=== PATIENT | female | born 1950 | race Caucasian/White ===

== ENCOUNTER 2023-02-01 10:00 | Outpatient (CLI) | payer MEDICARE, OTHER, SELFPAY ==
--- NOTE | ~2023-02-01 | US_ITS ---
US retroperitoneal comp 02/01/2023 10:31 Procedure: Realtime transabdominal ultrasound of the kidneys and bladder. Indication: Chronic kidney disease stage IV Comparison: No prior studies for comparison. Findings: Right renal echotexture is normal without hydronephrosis, contour deforming mass or renal c alculi. Right kidney measures 9.1 cm in length. Left kidney is surgically absent. The bladder is not distended for evaluation. Impression: 1: Unremarkable right kidney. Left kidney is surgically absent. Reviewed, dictated and finalized at location B. Impression: 1: Unremarkable right kidney. Left kidney is surgically absent.
[2023-02-01 10:42] LABS: Basophils Absolute Auto 0.05 K/mm3 (0.00-0.10); Eosinophils Absolute Auto 0.47 K/mm3 (0.02-0.50); Eosinophils Percent Auto 9.5 % (1.0-6.0); Hematocrit 35.2 % (35.0-42.0); Hemoglobin 11.9 g/dL (11.7-13.8); Immature Granulocyte Absolute 0.02 K/mm3 (0.00-0.00); Immature Granulocyte Percent A 0.4 % (0.0-0.0); Lymphocytes Absolute Auto 1.37 K/mm3 (1.10-4.50); Lymphocytes Percent Auto 27.6 % (18.0-42.0); Mean Corpuscular HGB Conc 33.8 g/dL (32.0-36.0); Mean Corpuscular Hemoglobin 32.7 pg (27.0-31.0); Mean Corpuscular Volume 96.7 fL (78.0-102.0); Mean Platelet Volume 11.2 fl (9.2-11.8); Monocytes Absolute Auto 0.53 K/mm3 (0.10-0.90); Monocytes Percent Auto 10.7 % (2.0-11.0); Neutrophils Absolute Auto 2.5 K/mm3 (1.7-7.2); Neutrophils Percent Auto 50.8 % (50.0-70.0); Platelet Count Result 187 K/mm3 (150-420); Red Blood Count 3.64 M/mm3 (4.20-5.40); Red Cell Distribution Width 13.2 % (11.6-14.4)
[2023-02-01 10:44] LABS: Bilirubin Urine Negative (Negative); Blood Urine Negative (Negative); Color Urine Orange (Yellow); Glucose Urine UA Negative (Negative); Ketones Urine Trace (Negative); Leukocyte Esterase Ur 2+ (Negative); Nitrate Urine Negative (Negative); Protein Urine Trace (Negative); Specific Grav Ur 1.015 (1.010-1.020); Urobilinogen Urine 0.2 mg/dL (0.2-1.0)
[2023-02-01 10:48] LABS: Add Urine Microscopic? YES; Appearance Urine Cloudy (Clear); Bacteria Urine 1+ /hpf; RBC Urine None seen /hpf (0-2); Squamous Epithelial Cell Urine Few /hpf (Few)
[2023-02-01 10:50] LABS: Creatinine Urine 210.87 mg/dL (40-278); MALB Creatinine Ratio 45.8 mg/g (0-30); Microalbumin Urine Random 96.6 mg/L
[2023-02-01 11:08] LABS: Anion Gap 12 mmol/L (8-16); Blood Urea Nitrogen 22 mg/dL (7-18); Calcium 9.6 mg/dL (8.5-10.1); Carbon Dioxide 24 mmol/L (21-32); Chloride 104 mmol/L (98-108); Estimated Glomerular Filt Rate 35; Glucose 185 mg/dL (70-99); Osmolality Calculated 298 mOsm/kg (285-295); Sodium 140 mmol/L (136-145)
== END 2023-02-01 10:01 | disposition home or self-care (01) ==
LOC: CHSIMG 10:04
PROVIDERS: PCP Family Medicine; Visit Provider Internal Medicine Nephrology
DX: N18.4 Chronic kidney disease, stage 4 (severe) (principal); Z90.5 Acquired absence of kidney
CPT/HCPCS: 36415; 76770; 80048; 81001; 82043; 85025; 86334

== ENCOUNTER 2023-04-21 14:36 | Outpatient (CLI) | payer MEDICARE, OTHER, SELFPAY ==
[2023-04-21 15:06] LABS: Basophils Absolute Auto 0.03 K/mm3 (0.00-0.10); Basophils Percent Auto 0.6 % (0.0-1.0); Eosinophils Absolute Auto 0.17 K/mm3 (0.02-0.50); Eosinophils Percent Auto 3.5 % (1.0-6.0); Hematocrit 33.1 % (35.0-42.0); Hemoglobin 11.2 g/dL (11.7-13.8); Immature Granulocyte Absolute 0.06 K/mm3 (0.00-0.00); Immature Granulocyte Percent A 1.2 % (0.0-0.0); Lymphocytes Absolute Auto 0.69 K/mm3 (1.10-4.50); Lymphocytes Percent Auto 14.1 % (18.0-42.0); Mean Corpuscular HGB Conc 33.8 g/dL (32.0-36.0); Mean Corpuscular Hemoglobin 32.9 pg (27.0-31.0); Mean Corpuscular Volume 97.4 fL (78.0-102.0); Mean Platelet Volume 10.5 fl (9.2-11.8); Monocytes Absolute Auto 0.73 K/mm3 (0.10-0.90); Neutrophils Absolute Auto 3.2 K/mm3 (1.7-7.2); Neutrophils Percent Auto 65.6 % (50.0-70.0); Platelet Count Result 173 K/mm3 (150-420); Red Cell Distribution Width 13.7 % (11.6-14.4); White Blood Count 4.9 K/mm3 (4.8-10.8)
[2023-04-21 15:10] LABS: MALB Creatinine Ratio 19.5 mg/g (0-30); Microalbumin Urine Random 26.5 mg/L
[2023-04-21 15:19] LABS: Albumin Level 3.5 g/dL (3.4-5.0); Anion Gap 7 mmol/L (8-16); Blood Urea Nitrogen 23 mg/dL (7-18); Calcium 9.2 mg/dL (8.5-10.1); Carbon Dioxide 28 mmol/L (21-32); Chloride 104 mmol/L (98-108); Estimated Glomerular Filt Rate 41; Glucose 145 mg/dL (70-99); Osmolality Calculated 294 mOsm/kg (285-295); Phosphorus 3.2 mg/dL (2.6-4.7); Potassium 3.9 mmol/L (3.5-5.1); Sodium 139 mmol/L (136-145)
== END 2023-04-21 14:37 | disposition home or self-care (01) ==
LOC: CHSLAB 14:41
PROVIDERS: PCP Family Medicine
DX: N18.4 Chronic kidney disease, stage 4 (severe) (principal)
CPT/HCPCS: 36415; 80069; 82043; 85025

== ENCOUNTER 2023-08-02 16:04 | Outpatient (CLI) | payer MEDICARE, SELFPAY ==
[2023-08-02 16:23] LABS: Basophils Absolute Auto 0.04 K/mm3 (0.00-0.10); Eosinophils Absolute Auto 0.11 K/mm3 (0.02-0.50); Eosinophils Percent Auto 2.7 % (1.0-6.0); Hematocrit 36.5 % (35.0-42.0); Hemoglobin 12.4 g/dL (11.7-13.8); Immature Granulocyte Absolute 0.03 K/mm3 (0.00-0.00); Immature Granulocyte Percent A 0.7 % (0.0-0.0); Lymphocytes Absolute Auto 1.04 K/mm3 (1.10-4.50); Lymphocytes Percent Auto 25.8 % (18.0-42.0); Mean Corpuscular Hemoglobin 32.1 pg (27.0-31.0); Mean Corpuscular Volume 94.6 fL (78.0-102.0); Mean Platelet Volume 10.9 fl (9.2-11.8); Monocytes Absolute Auto 0.43 K/mm3 (0.10-0.90); Monocytes Percent Auto 10.7 % (2.0-11.0); Neutrophils Absolute Auto 2.4 K/mm3 (1.7-7.2); Neutrophils Percent Auto 59.1 % (50.0-70.0); Platelet Count Result 181 K/mm3 (150-420); Red Blood Count 3.86 M/mm3 (4.20-5.40); Red Cell Distribution Width 13.4 % (11.6-14.4)
[2023-08-02 16:31] LABS: Creatinine Urine 54.14 mg/dL (40-278); MALB Creatinine Ratio 39.8 mg/g (0-30); Microalbumin Urine Random 21.6 mg/L
[2023-08-02 16:57] LABS: Albumin Level 3.7 g/dL (3.4-5.0); Anion Gap 9 mmol/L (8-16); Blood Urea Nitrogen 27 mg/dL (7-18); Carbon Dioxide 27 mmol/L (21-32); Chloride 101 mmol/L (98-108); Estimated Glomerular Filt Rate 37; Glucose 217 mg/dL (70-99); Osmolality Calculated 296 mOsm/kg (285-295); Phosphorus 3.5 mg/dL (2.6-4.7); Potassium 4.3 mmol/L (3.5-5.1); Sodium 137 mmol/L (136-145)
== END 2023-08-02 16:05 | disposition home or self-care (01) ==
LOC: CHSLAB 16:10
PROVIDERS: PCP Family Medicine
DX: N18.4 Chronic kidney disease, stage 4 (severe) (principal)
CPT/HCPCS: 36415; 80069; 82043; 85025

== ENCOUNTER 2023-12-02 14:07 | Outpatient (CLI) | payer MEDICARE, SELFPAY ==
[2023-12-02 14:33] LABS: Hematocrit 36.7 % (35.0-42.0); Hemoglobin 12.6 g/dL (11.7-13.8); Mean Corpuscular HGB Conc 34.3 g/dL (32-36); Mean Corpuscular Hemoglobin 32.3 pg (27.0-31.0); Mean Corpuscular Volume 94.1 fL (78.0-102.0); Platelet Count Result 184 K/mm3 (150-420); Red Cell Distribution Width 13.3 % (11.6-14.4); White Blood Count 5.9 K/mm3 (4.8-10.8)
[2023-12-02 14:41] LABS: Creatinine Urine 134.79 mg/dL (40-278); MALB Creatinine Ratio 37.9 mg/g (0-30); Microalbumin Urine Random 51.2 mg/L
[2023-12-02 15:06] LABS: Albumin Level 3.5 g/dL (3.4-5.0); Anion Gap 10 mmol/L (4-12); Blood Urea Nitrogen 25 mg/dL (7-18); Calcium 9.8 mg/dL (8.5-10.1); Carbon Dioxide 25 mmol/L (21-32); Chloride 101 mmol/L (98-108); Estimated Glomerular Filt Rate 36; Glucose 157 mg/dL (70-99); Osmolality Calculated 289 mOsm/kg (285-295); Phosphorus 3.6 mg/dL (2.6-4.7); Potassium 4.2 mmol/L (3.5-5.1); Sodium 136 mmol/L (136-145)
== END 2023-12-02 14:08 | disposition home or self-care (01) ==
LOC: CHSLAB 14:11
PROVIDERS: PCP Family Medicine
DX: N18.4 Chronic kidney disease, stage 4 (severe) (principal)
CPT/HCPCS: 36415; 80069; 82043; 85027

== ENCOUNTER 2024-02-04 14:45 | Outpatient (CLI) | payer MEDICARE, SELFPAY ==
--- NOTE | ~2024-02-04 | XR_ITS ---
[id number] Ordering provider: Tyree Cr, History: . CERVICAL RADICULAR PAIN,RT ARM . Comparison: None. FINDINGS: VERTEBRAL BODIES: Normal height and alignment. No visible fracture or subluxation. The dens is intact . DISK SPACES: Well maintained. Multilevel uncovertebral joint osteoarthritic changes. PARASPINOUS SOFT TISSUES: Bilateral carotid calcifications. No prevertebral soft tissue swelling. IMPRESSION: No acute osseous abnormality cervical spine. Reviewed, dictated and finalized at location A.
== END 2024-02-04 14:46 | disposition home or self-care (01) ==
PROVIDERS: PCP Family Medicine; Visit Provider Family Medicine
DX: M54.12 Radiculopathy, cervical region (principal)
CPT/HCPCS: 72040

== ENCOUNTER 2024-02-08 12:53 | Outpatient (RCR) | payer MEDICARE, SELFPAY ==
--- NOTE | 2024-02-08 14:16 | OPREHPOC ---
Outpatient Therapy Plan of Care This is a Multidisciplinary Plan of Care that may contain components documented by all disciplines (PT, OT, and ST.) PT Problem 1 PT Problem #1 Knowledge Deficit PT Goal 1 Goal / Goal Update The patient will be independent in a home exercise program. 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 Target Visit 8 PT Problem 3 PT Problem #3 Impaired Functional Mobil PT Goal 1 Goal / Goal Update 1. The patient will demonstrate 30% or less self perceived disability per the Back Index questionnaire. 2. The patient will ambulate 400 feet with 5/10 or less low back pain during the 6 minute walk test to improve community ambulation. Target Visit 8 PT Problem 4 PT Problem #4 Impaired Strength PT Goal 1 Goal / Goal Update The patient will demonstrate 3+/5 lower abdominal and hip extension strength to improve standing and walking tolerance. Target Visit 8
--- NOTE | 2024-02-08 14:17 | PTOPEVAL1 ---
Assessment and note entered by Diamond Kay, PT Evaluation Information Assessment Status Evaluation Diagnosis Lumbar Spinal Stenosis ICD-10 Condition Codes (PT) Pain in low back M54.50 Subjective Information Radha Zavala reports she was diagnosed with spinal stenosis in 2010. She had PT and also had injections and an ablation in the past that did not help her pain. Her most frequent MRI was performed in 2017 and showed DDD and L3-4 neural foraminal stenosis (L > R). She had a pacemaker placed 3 years ago and can not have a MRI now. She has difficulty standing and walking more than a few minutes which leads to inability to shop without a motorized scooter. She has to take breaks after washing a couple dishes. She uses a cane and a rollator walker for ambulation. She denies falls. She notes lower back pain comes and goes. She has pain with standing and walking and no pain with sitting and laying. She notes pain is just in the lower back and does not go into her legs. Reported Pain Level Pain Score 0: Self Report Assessment PT Clinical Summary Radha Zavala presents with chronic lower back pain and has been diagnosed with spinal stenosis. She has difficulty with walking or standing more than 1-2 minutes at a time leading to decreased ability to grocery shop, clean, bathe, and groom. She objectively demonstrates decreased and painful extension and right lateral flexion AROM, decreased core and hip girdle strength, decreased endurance, and decreased functional abilities. She will benefit from skilled PT to address these limitations. Plan of Care Interventions Electrical Stimulation,Hot Pack/Cold Pack,Manual Therapy,Neuro Re-education,Patient/Caregiver Educati,Therapeutic Activities,Therapeutic Exercise PT Services Indicated Yes Treatment Frequency and 2 times a week for 8 visits Duration These treatments will address the objective and functional deficits as defined above. The patient will be advanced safely and appropriately in order for the patient to progress towards his/her prior level of function. Additional exercises will be introduced and as well as a comprehensive home exercise program upon discharge, if needed, ?to ensure carryover of functional gains achieved in the clinic. This treatment plan has been reviewed and agreement upon by the patient.
--- NOTE | 2024-03-07 14:02 | PTOPDC ---
Assessment and note entered by Faith Fried DPT Evaluation Information Assessment Status Re-evaluation Diagnosis Lumbar Spinal Stenosis ICD-10 Condition Codes (PT) Pain in low back M54.50 Subjective Information patient reports that she had not much pain relief. she reports pain is still present when she is standing and walking and has to take frequent breaks when performing house hold tasks. she reports she continues to use a rollator or cane for ambulation outside of the home. she is independent with HEP Reported Pain Level Pain Score 6: Self Report Assessment PT Clinical Summary Radha Zavala has been seen for 8 visits of skilled PT with limited progress towards goals. She continues to have low back pain with standing and walking. She also continues to lack core and hip extension. She does report she is independent with HEP. She will be discharged at this time. Plan of Care PT Services Indicated No
== END 2024-03-07 15:51 | disposition home or self-care (01) ==
LOC: CHSPT 12:53
PROVIDERS: PCP Family Medicine; Visit Provider Family Medicine
DX: M48.061 Spinal stenosis, lumbar region without neurogenic claudication (principal)
CPT/HCPCS: 97110; 97161

== ENCOUNTER 2024-05-01 13:36 | Outpatient (CLI) | payer MEDICARE, SELFPAY ==
[2024-05-01 14:03] LABS: Hematocrit 34.1 % (35.0-42.0); Hemoglobin 11.9 g/dL (11.7-13.8); Mean Corpuscular HGB Conc 34.9 g/dL (32-36); Mean Corpuscular Hemoglobin 32.9 pg (27.0-31.0); Mean Corpuscular Volume 94.2 fL (78.0-102.0); Mean Platelet Volume 10.8 fl (9.2-11.8); Platelet Count Result 210 K/mm3 (150-420); Red Blood Count 3.62 M/mm3 (4.20-5.40); Red Cell Distribution Width 13.8 % (11.6-14.4); White Blood Count 10.4 K/mm3 (4.8-10.8)
[2024-05-01 14:39] LABS: Albumin Level 3.5 g/dL (3.4-5.0); Anion Gap 11 mmol/L (4-12); Blood Urea Nitrogen 35 mg/dL (7-18); Calcium 9.2 mg/dL (8.5-10.1); Carbon Dioxide 23 mmol/L (21-32); Chloride 101 mmol/L (98-108); Estimated Glomerular Filt Rate 41; Glucose 172 mg/dL (70-99); Osmolality Calculated 292 mOsm/kg (285-295); Phosphorus 3.6 mg/dL (2.6-4.7); Potassium 4.3 mmol/L (3.5-5.1); Sodium 135 mmol/L (136-145)
== END 2024-05-01 13:37 | disposition home or self-care (01) ==
LOC: CHSLAB 13:39
PROVIDERS: PCP Family Medicine; Visit Provider Internal Medicine Nephrology
DX: N18.4 Chronic kidney disease, stage 4 (severe) (principal)
CPT/HCPCS: 36415; 80069; 82043; 85027

== ENCOUNTER 2024-05-02 13:21 | Outpatient (CLI) | payer MEDICARE, SELFPAY ==
[2024-05-02 13:45] LABS: Creatinine Urine 149.77 mg/dL (40-278)
[2024-05-02 13:47] LABS: MALB Creatinine Ratio 70.5 mg/g (0-30); Microalbumin Urine Random 105.7 mg/L
== END 2024-05-02 13:22 | disposition home or self-care (01) ==
LOC: CHSLAB 13:23
PROVIDERS: PCP Family Medicine; Visit Provider Internal Medicine Nephrology
DX: N18.4 Chronic kidney disease, stage 4 (severe) (principal)
CPT/HCPCS: 82043

== ENCOUNTER 2024-07-12 14:34 | Outpatient (RCR) | payer MEDICARE, SELFPAY ==
--- NOTE | 2024-07-12 15:16 | PTOPEVAL1 ---
Assessment and note entered by Lawson Burnett Evaluation Information Assessment Status Evaluation ICD-10 Condition Codes (PT) Cervicalgia M54.2,Radiculopathy, cervical M54.13 Onset 07/12/23 Subjective Information Pt. reports that she has had neck and right arm. 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 She states that pain is mostly in the upper right arm. She reports that pain is worsened when looking at her phone or a computer. She reports that she has trouble with sleeping on the right side due to pain. She states that pain is worsened with reaching overhead and reaching across her body. She states that she has no neck pain and all pain is located in the shoulder. She denies any numbness or tingling. She states that her goal is to decrease her right shoulder pain and lift the right arm overhead. Reported Pain Level Pain Score 7: Self Report Assessment PT Clinical Summary Pt. is a 74 year old female who enters the clinic with neck pain and cervical radiculopathy. She present with indication of right shoulder impingement syndrome, as well as indication of degenerative changes at the right shoulder. Continued skilled PT is indicated in order to improve these areas to allow the pt. to be able improve right u.e. use with overhead activities and IADL performance. Plan of Care Interventions Electrical Stimulation,Hot Pack/Cold Pack,Manual Therapy,Mechanical Traction,Neuro Re-education, Patient/Caregiver Education,Therapeutic Activities ,Therapeutic Exercise PT Services Indicated Yes Treatment Frequency and 2x/week x 10 visits Duration These treatments will address the objective and functional deficits as defined above. The patient will be advanced safely and appropriately in order for the patient to progress towards his/her prior level of function. Additional exercises will be introduced and as well as a comprehensive home exercise program upon discharge, if needed, to ensure carryover of functional gains achieved in the clinic. This treatment plan has been reviewed and agreement upon by the patient.
--- NOTE | 2024-07-12 15:23 | OPREHPOC ---
Outpatient Therapy Plan of Care This is a Multidisciplinary Plan of Care that may contain components documented by all disciplines (PT, OT, and ST.) PT Problem 1 PT Problem #1 Knowledge Deficit PT Goal 1 Goal / Goal Update Pt. will be independent with a HEP focusing on c- spine mobility and postural awareness Target Visit 2 PT Problem 2 PT Problem #2 Impaired Range of Motion PT Goal 1 Goal / Goal Update Pt. will demonstrate 140 degrees active right shoulder flexion against gravity. Pt. will be able to reach to the thoracolumbar junction with the right u.e. for ease of dressing Target Visit 10 PT Problem 3 PT Problem #3 Impaired Strength PT Goal 1 Goal / Goal Update Pt. will present with 4/5 right shoulder flexion, ER and abduction strength Pt. will be able to lift 3-5# overhead with the right u.e. Target Visit 10 PT Problem 4 PT Problem #4 Impaired Functional Mobility PT Goal 1 Goal / Goal Update Pt. will report being able to sleep on the right side without pain disturbance.
== END 2024-07-19 20:00 | disposition home or self-care (01) ==
LOC: CHSPT 14:34
DX: M54.12 Radiculopathy, cervical region (principal)
CPT/HCPCS: 97110; 97140; 97161

== ENCOUNTER 2024-12-12 14:28 | Outpatient (RCR) | payer MEDICARE, SELFPAY ==
--- NOTE | 2024-12-12 16:51 | PTOPEVAL1 ---
Assessment and note entered by Faith Fried DPT Evaluation Information Assessment Status Evaluation Diagnosis R shoulder pain, back pain ICD-10 Condition Codes (PT) Radiculopathy, lumbar region M54.16,Pain in right shoulder M25.511 Other ICD-10 Condition Codes ( M75.80, M75.81 PT) Onset 11/27/24 Subjective Information Patient reports that she has had chronic back pain since 2010. She reports she has had injections and PT and has not had much relief. She reports she gets pain with standing for prolonged periods. She reports she is now using a rollator. She reports she has also had R shoulder pain for the last year. She reports she attended PT earlier this year but then ended up hospitalized but prior to hospitalization she felt she was getting some relief. She reports pain is worse with reaching out in front of her, sleeping, and completing house hold tasks. She reports she uses heat and pain patch for relief. She reports no following up at this time. Reported Pain Level Pain Score 2,0: Self Report Assessment PT Clinical Summary Mrs. Zavala is a 74 year old female who presents to PT with low back and R shoulder pain. She demonstrates decreased R shoulder active ROM, decreased R shoulder strength, decreased lumbar ROM and impaired gait limiting her ability to reach out in front of her, sleep, and complete house hold tasks She would benefit from skilled PT to address impairments and return to PLOF. Plan of Care Interventions Electrical Stimulation,Gait Training,Hot Pack/Cold Pack,Manual Therapy,Mechanical Traction,Neuro Re- education,Patient/Caregiver Education,Therapeutic Activities,Therapeutic Exercise PT Services Indicated Yes Treatment Frequency and 2x weekly for 10 visits Duration These treatments will address the objective and functional deficits as defined above. The patient will be advanced safely and appropriately in order for the patient to progress towards his/her prior level of function. Additional exercises will be introduced and as well as a comprehensive home exercise program upon discharge, if needed, ?to ensure carryover of functional gains achieved in the clinic. This treatment plan has been reviewed and agreement upon by the patient.
--- NOTE | 2025-01-11 14:48 | OPREHPOC ---
Outpatient Therapy Plan of Care This is a Multidisciplinary Plan of Care that may contain components documented by all disciplines (PT, OT, and ST.) PT Problem 1 PT Problem #1 Knowledge Deficit PT Goal 1 Goal / Goal Update patient to demonstrate independence with HEP Target Visit 5 Progress Met PT Problem 2 PT Problem #2 Pain PT Goal 1 Goal / Goal Update 1. patient to report highest R shoulder pain at 2/ 10 2. patient to report ability to reach to floor without increase in low back pain Target Visit 10 Progress Not Met PT Problem 3 PT Problem #3 Impaired Range of Motion PT Goal 1 Goal / Goal Update patient to demonstrate active R shoulder flexion to 160 deg to return to reaching into cabinet at PLOF Target Visit 10 Progress Not Met PT Problem 4 PT Problem #4 Impaired Functional Mobility PT Goal 1 Goal / Goal Update 1. Patient to improve both Quick Dash and Back index by 20% 2. Patient to report ability to stand for >30 minutes to complete house hold tasks 3. Patient to report ability to dress with no limitations due to R shoulder pain Target Visit 10 Progress Not Met
--- NOTE | 2025-01-11 14:48 | PTOPPROG ---
Assessment and note entered by Diamond Kay, PT Evaluation Information Assessment Status Progress Diagnosis R shoulder pain, back pain ICD-10 Condition Codes (PT) Radiculopathy, lumbar region M54.16,Pain in right shoulder M25.511 Other ICD-10 Condition Codes ( M75.80, M75.81 PT) Onset 11/27/24 Subjective Information Pt reports that her right shoulder is about the same overall. She notes that she can sleep on her right side now without pain but she still has difficulty reaching overhead. She continues to have low back pain as well that limits her ability to stand. She reports she has been diagnosed with spinal stenosis and her pain will most likely always be there. Assessment PT Clinical Summary Mrs. Zavala is a 74 year old female who has completed 10 skilled PT visits for low back and R shoulder pain. She is reporting no change in low back pain and minimal improvement in right shoulder pain. She is able to sleep without right shoulder pain now but she still has difficulty reaching overhead and behind her back. She demonstrates no significant change in right shoulder strength and ROM is about the same as well with the exception of functional ER behind the head has improved. She has not met PT goals at this time. She was recommended to follow up with her physician and we will put PT on hold until then. Plan of Care Interventions Manual Therapy,Patient/Caregiver Education, Therapeutic Activities,Therapeutic Exercise PT Services Indicated No Treatment Frequency and PT on hold until MD follow up Duration These treatments will address the objective and functional deficits as defined above. The patient will be advanced safely and appropriately in order for the patient to progress towards his/her prior level of function. Additional exercises will be introduced and as well as a comprehensive home exercise program upon discharge, if needed, ?to ensure carryover of functional gains achieved in the clinic. This treatment plan has been reviewed and agreement upon by the patient.
== END 2025-03-12 23:59 | disposition home or self-care (01) ==
LOC: CHSPT 14:28
DX: M54.16 Radiculopathy, lumbar region (principal); M75.81 Other shoulder lesions, right shoulder
CPT/HCPCS: 97110; 97140; 97161; 97530

== ENCOUNTER 2025-01-12 15:30 | Outpatient (CLI) | payer MEDICARE, SELFPAY ==
--- OUTSIDE RECORDS SUMMARY | 2024-08-24 08:10 | XMS_ITS ---
Author Organization [facility] Address [address] [facility] [address] [place], [place] [id number] Care Team Providers Care Coordinate Measuring Equipment Operator Name Role Phone ASHWIN COSTA Unavailable [phone] Tyree Cr Unavailable Unavailable DREW CRUZ Unavailable [phone] REASON FOR VISIT *General care Encounters Encounter Location Date Provider Diagnosis [address] [id number] 08/24/2024 DREW CRUZ Plan Of Treatment Next Appt Details Provider Name:ASHWIN COSTA, 02:20:00 PM, [address], [address], [id number], Progress Notes * LOVE SCHUSTER FDOB: [birth year] (74 yo F)Acc No.[id number]:08/24/2024 Patient: Mario CAO LOVE Sakshi Provider: Ita CRUZ :1950 A ge:74 Y S ex:Female Date:08/24/2024 Address:[address] [place], [place] [id number] Subjective: * Chief Complaints: * 1 . *General care. * Medical History: Objective: * Vitals: Assessment: Plan: * Treatment: * Billing Information: * Visit Code: * Procedure Codes: * Electronic signature of TAMRA CRUZ DPM on 01/12/2025 at 03:36 PM CDT Sign off status: Pending * Provider: Ita CRUZ Date: 0 08/24/2024 Generated for [place] peterson/Celia/Adalberto on: 0 01/12/2025 03:36 PM CDT
--- OUTSIDE RECORDS SUMMARY | 2024-12-11 09:00 | XMS_ITS ---
Author Organization [facility] Address [address] [place], [place] [id number] Care Team Providers Care Free Lance Model Name Role Phone ASHWIN COSTA Unavailable [phone] Tyree Cr Unavailable Unavailable Allergies Allergen (clinical drug ingredient) Drug/Non Drug Allergy documented on EMR Reaction Allergy Type Onset Date Status cefazolin Ancef (uncoded) Unknown Allergy 03/31/2013 act drew Product containing sulfonamide (product) (uncoded) Unknown Allergy 03/03/2013 active REASON FOR VISIT The patient has bruising to the right 2nd and 3rd toes. She does not recall any accident or injury.She states that it doens't hurt. She is not sure how long it has been there. It could have been there for 2 days or 2 months per the patient., Patient presents for at-risk foot care . The patient haspainful toenails that cause difficulty with ambulation and shoegear. The onset is gradual Medications Medication SIG (Take, Route, Frequency, Duration) Notes Start Date End Date Status amlodipine 10 MG Oral Tablet ORAL amlodipine 10 MG Oral TabletOriginal Medicationamlodipine 10 MG Oral Tablet *Reorder from [employer] for eRx and Interaction Alerts* 5 Active Lactobacillus acidophilus [id number] UNT Oral Capsule ORAL Lactobacillus acidophilus [id number] UNT Oral CapsuleOriginal MedicationLactobacillus acidophilus [id number] UNT Oral Capsule *Reorder from [employer] for eRx and Interaction Alerts* 5 Active levothyroxine sodium 0.112 MG Oral Tablet ORAL levothyroxine sodium 0.112 MG Oral TabletOriginal Medicationlevothyroxine sodium 0.112 MG Oral Tablet *Reorder from [facility] for eRx and Interaction Alerts* 3 Active omeprazole 10 MG Delayed Release Oral Capsule ORAL omeprazole 10 MG Delayed Release Oral CapsuleOriginal Medicationomeprazole 10 MG Delayed Release Oral Capsule *Reorder from [facility] for eRx and Interaction Alerts* 3 Active trazodone hydrochloride 100 MG Oral Tablet ORAL trazodone hydrochloride 100 MG Oral TabletOriginal Medicationtrazodone hydrochloride 100 MG Oral Tablet *Reorder from [facility] for eRx and Interaction Alerts* 3 Active acetaminophen 325 MG Oral Tablet [Tylenol] ORAL acetaminophen 325 MG Oral Tablet [Tylenol]Original Medicationacetaminophen 325 MG Oral Tablet [Tylenol] *Reorder from [facility] for eRx and Interaction Alerts* 3 Active Losartan Potassium 100 MG Oral Tablet ORAL losartan potassium 100 MG Oral TabletOriginal Medicationlosartan potassium 100 MG Oral Tablet *Reorder from [facility] for eRx and Interaction Alerts* 3 Active Flucytosine 500 MG Oral Capsule ORAL flucytosine 500 MG Oral CapsuleOriginal Medicationflucytosine 500 MG Oral Capsule *Reorder from [facility] for eRx and Interaction Alerts* 3 Active Pravastatin Sodium 10 MG Oral Tablet ORAL pravastatin sodium 10 MG Oral TabletOriginal Medicationpravastatin sodium 10 MG Oral Tablet *Reorder from [facility] for eRx and Interaction Alerts* 3 Active Meloxicam 15 MG Oral Tablet ORAL meloxicam 15 MG Oral TabletOriginal Medicationmeloxicam 15 MG Oral Tablet *Reorder from [facility] for eRx and Interaction Alerts* 5 Active Metoprolol Tartrate 100 MG Oral Tablet ORAL metoprolol tartrate 100 MG Oral TabletOriginal Medicationmetoprolol tartrate 100 MG Oral Tablet *Reorder from [facility] for eRx and Interaction Alerts* 5 Active Vital Signs Height 64.00 in 12/11/2024 Weight 230 lbs 12/11/2024 BMI 39.48 kg/m2 12/11/2024 Height-cm 162.56 cm 12/11/2024 Weight-kg 104.33 kg 12/11/2024 Encounters Encounter Location Date Provider Diagnosis [facility] [address] [place], [place] [id number] 12/11/2024 ASHWIN COSTA Tinea unguium B35.1 ; Contusion of right foot, initial encounter S90.31XA ; Pain in right toe(s) M79.674 ; Pain in left toe(s) M79.675 and Atherosclerosis of shoalwater arteries of extremities with intermittent claudication, bilateral legs I70.213 Assessments Encounter Date Diagnosis (ICD Code) Assessment Notes Treatment Notes Treatment Clinical Notes Section Notes 12/11/2024 Tinea unguium (ICD-10 - B35.1) FUNGAL TOENAILS: Discussed various treatment options for fungal toenails including debridement, topical antifungals, oral antifungals, toenail avulsion, or toenail matrixectomy. NAIL DEBRIDEMENT: Nails 1-5 Bilateral were debrided extensively with nail nippers and emery board, reducing length and girth to pink healthy tissue with any subungual debris and necrotic tissue removed 12/11/2024 Contusion of right foot, initial encounter (ICD-10 - S90.31XA) I instructed the patient to monitor the bruising. If it persists after 2-3 weeks with no improvement, she will contact the office 12/11/2024 Pain in right toe(s) (ICD-10 - M79.674) 12/11/2024 Pain in left toe(s) (ICD-10 - M79.675) 12/11/2024 Atherosclerosis of shoalwater arteries of extremities with intermittent claudication, bilateral legs (ICD-10 - I70.213) Plan Of Treatment Treatment Notes Assessment Notes Tinea unguium FUNGAL TOENAILS: Discussed various treatment options for fungal toenails including debridement, topical antifungals, oral antifungals, toenail avulsion, or toenail matrixectomy. NAIL DEBRIDEMENT: Nails 1-5 Bilateral were debrided extensively with nail nippers and emery board, reducing length and girth to pink healthy tissue with any subungual debris and necrotic tissue removed Contusion of right foot, initial encount er I instructed the patient to monitor the bruising. If it persists after 2-3 weeks with no improvement, she will contact the office Next Appt Details Follow Up: 10-12 Weeks, Reas on: At Risk Foot care, sooner if problems arise Provider Name:ASHWIN CHERYNEHAL, 02:20:00 PM, [address], [facility], [place], [place], [id number], Progress Notes * LOVE SCHUSTER FDOB: [birth year] (74 yo F)Acc No.[id number]:12/11/2024 Patient: LOVE GRAHAM Provider: Chavo Costa DPM :1950 A ge:74 Y S ex:Female Date:12/11/2024 Address:[address] [place], [place] [id number] Subjective: * Chief Complaints: * 1 . The patient has bruising to the right 2nd and 3rd toes. She does not recall any accident or injury. She states that it doens't hurt. She is not sure how long it has been there. It could have been there for 2 days or 2 months per the patient.. 2. Patient presents for at-risk foot care . The patient has painful toenails that cause difficulty with ambulation and shoegear. The onset is gradual. * HPI: H PI: General care P atient presents to the office for at risk foot care. Patient states that their nails are thickened, elongated and painful. Patient states that it is aggravated by shoe gear. Onset is gradual. Patient denies being diabetic., Patient denies taking prescription blood thinners but does take a daily aspirin., Date last seen by Dr. Cr was 09/2024., Initials mca. sample. * ROS: G eneral / Constitutional: Patient denies c hills, fever, weight loss. ? M usculoskeletal: Patient denies b roken foot bone, weakness. ? P eripheral Vascular: Patient denies p ain / cramping in legs after exertion, ulceration of feet. S kin: Patient complains of f ungal nails, nail changes. ? N eurologic: Patient denies b alance difficulty, confusion, difficulty speaking, dizziness. * Medical History: * Family History: F ather: PRN - Father: :: Heart Disease < 55 yrs,,known absent . M other: PRN - Mother: :: Diabetes,,known absent , :: Congenital heart disease,,known absent . B rother: SIB - Brother: :: Arthritis,,known absent , :: Cancer,,known absent , :: Heart Disease < 55 yrs,,known absent , , :: Diabetes,,known absent , :: Hypertension,,known absent . S ister: SIB - Sister: :: Arthritis,,known absent , :: Cancer,,known absent , :: Diabetes,,known absent , :: Hypertension,,known absent . * Social History: M igrated Social History: M igrated Social History: Alcohol intake : , Smoking Status : Never used tobacco , History of tobacco use :. * Medications: T aking Metoprolol Tartrate 100 MG Oral Tablet ORAL , Notes to Pharmacist: metoprolol tartrate 100 MG Oral TabletOriginal Medicationmetoprolol tartrate 100 MG Oral Tablet *Reorder from [facility] for eRx and Interaction Alerts*, Taking Flucytosine 500 MG Oral Capsule ORAL , Notes to Pharmacist: flucytosine 500 MG Oral CapsuleOriginal Medicationflucytosine 500 MG Oral Capsule *Reorder from [facility] for eRx and Interaction Alerts*, Taking Pravastatin Sodium 10 MG Oral Tablet ORAL , Notes to Pharmacist: pravastatin sodium 10 MG Oral TabletOriginal Medicationpravastatin sodium 10 MG Oral Tablet *Reorder from [facility] for eRx and Interaction Alerts*, Taking Meloxicam 15 MG Oral Tablet ORAL , Notes to Pharmacist: meloxicam 15 MG Oral TabletOriginal Medicationmeloxicam 15 MG Oral Tablet *Reorder from [facility] for eRx and Interaction Alerts*, Taking Losartan Potassium 100 MG Oral Tablet ORAL , Notes to Pharmacist: losartan potassium 100 MG Oral TabletOriginal Medicationlosartan potassium 100 MG Oral Tablet *Reorder from [facility] for eRx and Interaction Alerts*, Taking acetaminophen 325 MG Oral Tablet [Tylenol] ORAL , Notes to Pharmacist: acetaminophen 325 MG Oral Tablet [Tylenol]Original Medicationacetaminophen 325 MG Oral Tablet [Tylenol] *Reorder from [facility] for eRx and Interaction Alerts*, Taking amlodipine 10 MG Oral Tablet ORAL , Notes to Pharmacist: amlodipine 10 MG Oral TabletOriginal Medicationamlodipine 10 MG Oral Tablet *Reorder from [facility] for eRx and Interaction Alerts*, Taking Lactobacillus acidophilus [id number] UNT Oral Capsule ORAL , Notes to Pharmacist: Lactobacillus acidophilus [id number] UNT Oral CapsuleOriginal MedicationLactobacillus acidophilus [id number] UNT Oral Capsule *Reorder from [facility] for eRx and Interaction Alerts*, Taking levothyroxine sodium 0.112 MG Oral Tablet ORAL , Notes to Pharmacist: levothyroxine sodium 0.112 MG Oral TabletOriginal Medicationlevothyroxine sodium 0.112 MG Oral Tablet *Reorder from [facility] for eRx and Interaction Alerts*, Taking omeprazole 10 MG Delayed Release Oral Capsule ORAL , Notes to Pharmacist: omeprazole 10 MG Delayed Release Oral CapsuleOriginal Medicationomeprazole 10 MG Delayed Release Oral Capsule *Reorder from [facility] for eRx and Interaction Alerts*, Taking trazodone hydrochloride 100 MG Oral Tablet ORAL , Notes to Pharmacist: trazodone hydrochloride 100 MG Oral TabletOriginal Medicationtrazodone hydrochloride 100 MG Oral Tablet *Reorder from [facility] for eRx and Interaction Alerts*, Medication List reviewed and reconciled with the patient * Allergies: A ncef: Allergy - Onset Date 03/31/2013, Product containing sulfonamide (product): Allergy - Onset Date 03/03/2013. Objective: * Vitals: W t:230lbs, Wt-k.33 kg, Ht: 64.00 in, Ht-cm: 162.56 cm, BMI:39.48Index, Body Surface Area: 2.17. * Examination: C onstitutional: Constitutional T he patient is awake, alert, well developed, well groomed and well nourished. D ermatologic: Skin findings: S kin is thin, atrophic and lacking pedal hair. There is ecchymosis to the right 2nd and 3rd digits. No blisters. No lacerations. No calor. Nail pathology: N ails 1, 2, 3, 4, and 5 bilateral are elongated, thick, discolored, and dystrophic with subungual debris. They are painful to palpation. ? V ascular: Dorsalis pedis pulse: 1 /4 b ilateral. Posterior tibial pulse: 0 /4 b ilateral. Capillary refill: g reater than 3 seconds. Edema: N o edema, bilateral. N eurologic: Gross sensation G loli sensation is intact to light touch.? M usculoskeletal: Muscle Strength M uscle strength is 5/5 in regards to dorsiflexion, plantarflexion, inversion, and eversion in bilateral lower extremities. ? R adiographs: Right Foot N o evidence of fracture, dislocation, or other osseous lesions. 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 Xray Order T est Requested: 3 Views Weightbearing (AP, LAT, Oblique) Foot, right. Assessment: * Assessment: 1. T inea unguium - B35.1 (Primary) 2 . C ontusion of right foot, initial encounter - S90.31XA 3 . P ain in right toe(s) - M79.674 4 . P ain in left toe(s) - M79.675 5 . A therosclerosis of shoalwater arteries of extremities with intermittent claudication, bilateral legs - I70.213 Plan: * Treatment: 2. C ontusion of right foot, initial encounter Notes: I instructed the patient to monitor the bruising. If it persists after 2-3 weeks with no improvement, she will contact the office * Immunizations: Immunization record has been reviewed and updated. * Preventive Medicine: Screenings: F all risk screening F all Risk Assessment: T wo or more falls with injury in the past year, P sruthi of Care: D ocumented, T ype of fall plan of care: Balance, strength and gait training or instruction provided, H ave you had two or more falls in the past year? Y es, H ave you had any falls with injury in the past year? Y es. * Follow Up: 1 0-12 Weeks (Reason: At Risk Foot care, sooner if problems arise) * Billing Information: * Visit Code: 70854 Office Visit, Est Pt., Level 3. * Procedure Codes: * Electronic signature of ASHWIN COSTA DPM on 01/12/2025 at 03:36 PM CDT Sign off status: Pending * Provider: Chavo Costa DPM Date: 0 12/11/2024 Generated for [place] peterson/Celia/Bhavnaitting on: 0 01/12/2025 03:36 PM CDT History and Physical Notes * HPI (History of Present Illness) Category Sub-Category Detail Notes Category Not es HPI General care Patient presents to the office for at risk foot care. Patient states that their nails are thickened, elongated and painful. Patient states that it is aggravated by shoe gear. Onset is gradual. Patient denies being diabetic., Patient denies taking prescription blood thinners but does take a daily aspirin., Date last seen by Dr. Cr was 09/2024., Initials mca sample Examination Category Sub-Category Detail Notes Category Not es Dermatologic Skin findings: Skin is thin, at rophic and lacking pedal hair. There is ecchymosis to the right 2nd and 3rd digits. No blisters. No lacerations. No calor Nail pathology: Nails 1, 2, 3, 4, an d 5 bilateral are elongated, thick, discolored, and dystrophic with subungual debris. They are painful to palpation Neurologic Gross sensation Gross sensation is intact to light touch Vascular Dorsalis pedis pulse: 1/4 bilateral Edema: No edema, bilateral Capillary refill: greater than 3 secon ds Posterior tibial pulse: 0/4 bilateral Musculoskeletal Muscle Strength Muscle strength is 5/5 in regards to dorsiflexion, plantarflexion, inversion, and eversion in bilateral lower extremities Constitutional Constitutional The patient is a wake, alert, well developed, well groomed and well nourished Radiographs Right Foot No evidence of f racture, dislocation, or other osseous lesions. 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
--- OUTSIDE RECORDS SUMMARY | 2025-01-12 15:37 | XMS_ITS | Clinical Summary ---
Author Organization [facility] Address [address] [place] [address] Care Team Providers Care Car Pilot Name Role Phone Armando Antonio MD Unavailable [phone] Source Comments [facility],non-owned Affiliates and Associated Physician Practices is amultiple site organization consisting of ambulatory clinics and hospital sitesin [place], [place], [place] and [place]. This disclosure is being madepursuant to the Care Everywhere program and may not contain all information available regarding this patient. Last updated 18.[facility] Allergies Active Allergy Reactions Criticality Noted Date Comments Sulfa Drugs 02/02/2012 Medications * Be aware that medications may not be up to date on this document. Alwaysverify current medications with the patient. omeprazole (PRILOSEC OTC) 20 MG tablet Take 20 mg by mouth daily before breakfast. Active Thyroid, Pork, 30 MG CAPS Take by mouth. Active FLUoxetine (PROZAC) 20 MG capsule Take 20 mg by mouth once daily. Active losartan (COZAAR) 100 MG tablet Take 100 mg by mouth once daily. Active Multiple Vitamins-Mineral s (PROSIGHT) tablet Take 1 Tab by mouth once daily. Active pravastatin (PRAVACHOL) 40 MG tablet Take 40 mg by mouth at bedtime. Active traZODone (DESYREL) 50 MG tablet Take 50 mg by mouth at bedtime. Active SULINDAC PO Take by mouth. Active meloxicam (MOBIC) 15 MG tablet Take 15 mg by mouth once daily. Active Probiotic Product (PROBIOTIC DAILY PO) Take by mouth. Active amLODIPine (NORVASC) 5 MG tablet Take 5 mg by mouth once daily. Active metoprolol succinate XL 24hr (TOPROL XL) 25 MG tablet Take 25 mg by mouth once daily. 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 Gender Identity Not on file Sexual Orientation Not on file Plan of Treatment Health Maintenance Due Date Last Done Comments BONE DENSITY TESTING 1950 COLOGUARD (AGES 45-75) - COL ON CA SCREENING 1950 COLON MONITORING 1950 COLONOSCOPY - COLON CA SCREENING 1950 CT COLONOGRAPHY - COLON CA SCREENING 1950 Colorectal Cancer Screening 1950 FIT - COLON CA SCREENING 1950 FLEX SIG - COLON CA SCREENING 1950 MAMMOGRAM 1950 MEDICARE AWV 12 MONTHS 1950 HEPATITIS C SCREENING 04/14/1969 DTAP/TDAP/TD VACCINES (1 - Tdap) 1970 PNEUMOCOCCAL VACCINE 50+ (1 of 1 - PCV) 2001 ZOSTER VACCINE (1 of 2) 2001 COVID-19 VACCINE (1 - 2023-2 5 season) 2024 DEPRESSION SCREENING 05/24/2024 INFLUENZA VACCINE (#1) 2025 Respiratory Syncytial Virus (RSV) Vaccine Pt: or over 60 yrs (1 - 1-dose 75+ series) 2026 HEPATITIS B VACCINE Aged Out No longe r eligible based on patient's age to complete this topic HIB VACCINE Aged Out No longer eligi ble based on patient's age to complete this topic HPV VACCINE Aged Out No longer eligi ble based on patient's age to complete this topic MENINGOCOCCAL (Group B) VACC INE SHARED DECISION-MAKING Aged Out No longer eligibl e based on patient's age to complete this topic MENINGOCOCCAL GROUPS A/C/Y/W VACCINE Aged Out No longer eligible b ased on patient's age to complete this topic Insurance [facility] Address: [address] [facility] [address] [place] [address] MEDICARE [employer] Care Teams Car Pilot Relationship Specialty Start Date End Date Armando Antonio MD Orthopedic Surgery 02/02/12
--- OUTSIDE RECORDS SUMMARY | 2025-01-12 15:37 | XMS_ITS | Encounter Summary ---
Author Organization [facility] Address [address] [place] [address] Care Team Providers Care Front Man Name Role Phone Armando Antonio MD Unavailable [phone] Encounter Details Date Type Department Care Team (Late st Contact Info) Description 08/21/2022 Lab Requisition [facility] Care DermPath Lab [address] [place] [id number] Cristian Mercado MD [address] [place] [address] Social History Tobacco Use Types Packs/Day Years Used Date Smoking Tobacco: Unknown Alcohol Use Standard Drinks/Week Comments Not Asked 0 (1 standard drink = 0.6 oz pur e alcohol) Comments Unknown Sex and Gender Information Value Date Recorded Sex Assigned at Not on file Legal Sex Female 6:06 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 Gender Identity Not on file Sexual Orientation Not on file documented as of this encounter Plan of Treatment Not on file documented as of this encounter Procedures Procedure Name Priority Date/Time Associated Diagnosis Comments DERMATOPATHOLOGY Routine 08/19/2022 3:33 AM CDT documented in this encounter Results * DERMATOPATHOLOGY (08/19/2022 3:33 AM CDT) Case Report Dermatopathology Report Case: [id number] Authorizing Provider: Cristian Mercado MD Collected: 08/19/2022 03:33 AM Ordering Location: [facility] Care DermPath Lab Received: 08/21/2022 07:19 AM Pathologist: Henny Martines MD Specimens: A) - Skin, left frontal scalp B) - Skin, parietal scalp C) - Skin, post parietal scalp 4:23 PM T DERMATOPATHOLOGY LABORATORY Final Diagnosis Specimen A. 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 SKIN, parietal scalp: FOLLICULITIS, SUPPURATIVE (L73.8) (see microscopic description) Specimen C. SKIN, post parietal scalp: PRURIGO NODULARIS, ERODED, AND IMPETIGINIZED (L28.1) 4:23 PM T DERMATOPATHOLOGY LABORATORY at 1623 CDT Clinical History A-C: R/O SCC BCC LSC 4:23 PM T DERMATOPATHOLOGY LABORATORY Gross Description Specimen A: Received is one formalin filled container labeled with the patient's name and designated left frontal scalp. The specimen consists of a shave biopsy measuring 8x7x1 mm. Jar 0. Specimen B: Received is one formalin filled container labeled with the patient's name and designated parietal scalp. The specimen consists of a shave biopsy measuring 6x5x1 mm. Jar 0. Specimen C: Received is one formalin filled container labeled with the patient's name and designated post parietal scalp. The specimen consists of two shaved biopsies measuring 8x7x2 mm and 6x4x1 mm. Jar 0. 4:23 PM T DERMATOPATHOLOGY LABORATORY Microscopic Description Specimen A. SKIN, left frontal scalp: There is a dome-shaped portion of skin with psoriasiform epidermal hyperplasia, compact hyperkeratosis, and fibrosis of the papillary dermis associated with a superficial perivascular lymphohistiocytic infiltrate. A focal erosion is present. Specimen B. SKIN, parietal scalp: Sections show rupture of the follicular infundibulum, with numerous neutrophils. GMS stain is negative for fungus. Gram stain is negative for bacteria. Specimen C. SKIN, post parietal scalp: There is a dome-shaped portion of skin with psoriasiform epidermal hyperplasia, compact hyperkeratosis, and fibrosis of the papillary dermis associated with a superficial perivascular lymphohistiocytic infiltrate. A focal erosion is present. Bacteria are seen within the overlying inflamed serum scale crust. 4:23 PM CDT DERMATOPATHOLOGY LABORATORY Disclaimer An external and internal positive and negative controls are appropriate for the histochemical, immunohistochemical and immunofluorescence stain(s) in this case (if any), except where stated explicitly. The performance characteristics of the stain(s) cited in this report were developed and its performance characteristic determined by the Dermatopathology Laboratory at [facility], directed by Dr. Richar Little. These tests need not be, and therefore are not, approved by the [place] Food and Drug Administration. The tests are used for clinical purposes. Billing Codes Specimen Charges Stain Charges 85277 10089 96673 1 1 1 67716 22148 1 1 3 4:23 PM CDT DERMATOPATHOLOGY LABORATORY Embedded Images 3 4:23 PM CDT DERMATOPATHOLOGY LABORATORY Pathology/Cytology TISSUE SPECIMEN FROM SKIN / Unknown 08/19/2022 3:33 AM CDT 08/21/2022 7:19 AM CDT Miscellaneous samples (specimen) TISSUE SPECIMEN FROM SKIN / Unknown 08/19/2022 3:33 AM CDT 08/21/2022 7:19 AM CDT Miscellaneous samples (specimen) TISSUE SPECIMEN FROM SKIN / Unknown 08/19/2022 3:33 AM CDT 08/21/2022 7:19 AM CDT Cristian Mercado MD LAB - PATHOLOGY/CYTOLOGY ORD ERABLES Final Result DERMATOPATHOLOGY LABORATORY [facility] Department of Dermatology [facility] Medicine [address] [place] [address], [address] [phone] documented in this encounter Visit Diagnoses Not on filedocumented in this encounter Care Teams Front Man Relationship Specialty Start Date End Date Armando Antonio MD Orthopedic Surgery 02/02/12 documented as of this encounter
[2025-01-12 15:47] LABS: Hematocrit 32.1 % (35.0-42.0); Hemoglobin 10.9 g/dL (11.7-13.8); Mean Corpuscular HGB Conc 34.0 g/dL (32-36); Mean Corpuscular Hemoglobin 32.1 pg (27.0-31.0); Mean Corpuscular Volume 94.4 fL (78.0-102.0); Platelet Count Result 255 K/mm3 (150-420); Red Blood Count 3.40 M/mm3 (4.20-5.40); White Blood Count 9.2 K/mm3 (4.8-10.8)
[2025-01-12 16:40] LABS: Albumin Level 4.1 g/dL (3.5-5.1); Anion Gap 9 mmol/L (4-12); Blood Urea Nitrogen 19 mg/dL (7-17); Calcium 10.0 mg/dL (8.4-10.2); Carbon Dioxide 27 mmol/L (22-30); Chloride 102 mmol/L (98-107); Estimated Glomerular Filt Rate 53; Glucose 122 mg/dL (65-110); MALB Creatinine Ratio 90.3 mg/g (0-30); Osmolality Calculated 289 mOsm/kg (285-295); Potassium 4.0 mmol/L (3.4-5.0); Sodium 138 mmol/L (137-145)
== END 2025-01-12 15:31 | disposition home or self-care (01) ==
LOC: CHSLAB 15:34
PROVIDERS: PCP Family Medicine
DX: N18.4 Chronic kidney disease, stage 4 (severe) (principal)
CPT/HCPCS: 36415; 80069; 82043; 85027

== ENCOUNTER 2025-04-25 14:02 | Outpatient (CLI) | payer MEDICARE, SELFPAY ==
--- OUTSIDE RECORDS SUMMARY | 2025-03-12 08:20 | XMS_ITS ---
Author Organization [facility] Address [address] [place], [place] [id number] Care Team Providers Care Citrus Fruit Colorer Name Role Phone ASHWIN COSTA Unavailable [phone] [address] Unavailable Unavailable Allergies Allergen (clinical drug ingredient) Drug/Non Drug Allergy documented on EMR Reaction Allergy Type Onset Date Status cefazolin Ancef (uncoded) Unknown Allergy 03/31/2013 act drew Substance with sulfonamide structure and antibacterial mechanism of action (substance) Product containing sulfonamide (product) (uncoded) Unknown Allergy 03/03/2013 active REASON FOR VISIT Patient presents for at-risk foot care . The patient has painful toenails that cause difficulty with ambulation and shoegear. The onset is gradual Medications Medication SIG (Take, Route, Frequency, Duration) Notes Start Date End Date Status Losartan Potassium 100 MG Oral Tablet ORAL losartan potassium 100 MG Oral TabletOriginal Medicationlosartan potassium 100 MG Oral Tablet *Reorder from [facility] for eRx and Interaction Alerts* 3 Active Metoprolol Tartrate 100 MG Oral Tablet ORAL metoprolol tartrate 100 MG Oral TabletOriginal Medicationmetoprolol tartrate 100 MG Oral Tablet *Reorder from [facility] for eRx and Interaction Alerts* 5 Active Flucytosine 500 MG Oral Capsule ORAL flucytosine 500 MG Oral CapsuleOriginal Medicationflucytosine 500 MG Oral Capsule *Reorder from [facility] for eRx and Interaction Alerts* 3 Active Pravastatin Sodium 10 MG Oral Tablet ORAL pravastatin sodium 10 MG Oral TabletOriginal Medicationpravastatin sodium 10 MG Oral Tablet *Reorder from [facility] for eRx and Interaction Alerts* 3 Active Meloxicam 15 MG Oral Tablet ORAL meloxicam 15 MG Oral TabletOriginal Medicationmeloxicam 15 MG Oral Tablet *Reorder from [facility] for eRx and Interaction Alerts* 5 Active amlodipine 10 MG Oral Tablet ORAL amlodipine 10 MG Oral TabletOriginal Medicationamlodipine 10 MG Oral Tablet *Reorder from [facility] for eRx and Interaction Alerts* 5 Active Lactobacillus acidophilus [id number] UNT Oral Capsule ORAL Lactobacillus acidophilus [id number] UNT Oral CapsuleOriginal MedicationLactobacillus acidophilus [id number] UNT Oral Capsule *Reorder from [facility] for eRx and Interaction Alerts* 5 Active levothyroxine sodium 0.112 MG Oral Tablet ORAL levothyroxine sodium 0.112 MG Oral TabletOriginal Medicationlevothyroxine sodium 0.112 MG Oral Tablet *Reorder from [facility] for eRx and Interaction Alerts* 3 Active omeprazole 10 MG Delayed Release Oral Capsule ORAL omeprazole 10 MG Delayed Release Oral CapsuleOriginal Medicationomeprazole 10 MG Delayed Release Oral Capsule *Reorder from [facility] for eRx and Interaction Alerts* 3 Active trazodone hydrochloride 100 MG Oral Tablet ORAL trazodone hydrochloride 100 MG Oral TabletOriginal Medicationtrazodone hydrochloride 100 MG Oral Tablet *Reorder from [facility] for eRx and Interaction Alerts* 3 Active acetaminophen 325 MG Oral Tablet [Tylenol] ORAL acetaminophen 325 MG Oral Tablet [Tylenol]Original Medicationacetaminophen 325 MG Oral Tablet [Tylenol] *Reorder from [facility] for eRx and Interaction Alerts* 3 Active Social History Social History Additional Details Category Social Info Options Details Migrated Social History Migrated Social History Alcohol intake : , Smoking Status : Never used tobacco , History of tobacco use : Vital Signs Height 64.00 in 03/12/2025 Weight 230 lbs 03/12/2025 BMI 39.48 kg/m2 03/12/2025 Height-cm 162.56 cm 03/12/2025 Weight-kg 104.33 kg 03/12/2025 Encounters Encounter Location Date Provider Diagnosis [facility] [id number] [place], [place] [phone] 03/12/2025 ASHWIN COSTA Tinea unguium B35.1 Assessments Encounter Date Diagnosis (ICD Code) Assessment Notes Treatment Notes Treatment Clinical Notes Section Notes 03/12/2025 Tinea unguium (ICD-10 - B35.1) FUNGAL TOENAILS: Discussed various treatment options for fungal toenails including debridement, topical antifungals, oral antifungals, toenail avulsion, or toenail matrixectomy. NAIL DEBRIDEMENT: Nails 1-5 Bilateral were debrided extensively with nail nippers and emery board, reducing length and girth to pink healthy tissue with any subungual debris and necrotic tissue removed Plan Of Treatment Treatment Notes Assessment Notes Tinea unguium FUNGAL TOENAILS: Discussed various treatment options for fungal toenails including debridement, topical antifungals, oral antifungals, toenail avulsion, or toenail matrixectomy. NAIL DEBRIDEMENT: Nails 1-5 Bilateral were debrided extensively with nail nippers and emery board, reducing length and girth to pink healthy tissue with any subungual debris and necrotic tissue removed Next Appt Details Follow Up: 10-12 Weeks, Reas on: At Risk Foot care, sooner if problems arise Provider Name:DREW PRABHAKAR, 05/31/2025 01:10:00 PM, [address] [place] [address], [phone], History and Physical Notes * HPI (History [...] daily aspirin., Date last seen by Dr. Barnett 12/2024., Initials nd sample Examination Category Sub-Category Detail Notes Category Not es Dermatologic Skin findings: Skin is thin, at rophic and lacking pedal hair Nail pathology: Nails 1, 2, 3, 4, [...] well developed, well groomed and well nourished Progress Notes * LOVE SCHUSTER FDOB: [birth year] (75 yo F)Acc No.[id number]:03/12/2025 Patient: LOVE GRAHAM Provider: Chavo Costa DPM :1950 A ge:74 Y S ex:Female Date:03/12/2025 Address:[address] [place] [address] Subjective: * Chief Complaints: * Sondra severino presents for at-risk foot care . The patient has painful toenails that cause difficulty with ambulation and shoegear. The onset is gradual * HPI: H PI: General care Sondra severino presents to the office for at risk foot care. Patient states that their nails are thickened, elongated and painful. Patient states that it is aggravated by shoe gear. Onset is gradual. Patient denies being diabetic., Patient denies taking prescription blood thinners but does take a daily aspirin., Date last seen by Dr. Barnett 12/2024., Initials nd. sample. * Medical History: No Medical History Documented Medical History Verified * Surgical History: Denies Past Surgical History. Surgical History verified. * Hospitalization/Major Diagno stic Procedure: Denies Past Hospitalization. Hospitalization Verified. * Family History: F ather: PRN - [...] Diabetes,,known absent , :: Hypertension,,known absent . F amily History Verified.. * Social History: M igrated Social History: M igrated Social History: Alcohol intake : , Smoking Status : Never used tobacco , History of tobacco use :. Social History Verified. * Medications: T akingMetoprolol Tartrate 100 MG Oral Tablet ORAL , Notes to Pharmacist: metoprolol tartrate 100 MG Oral TabletOriginal Medicationmetoprolol tartrate 100 MG Oral Tablet *Reorder from [facility] for eRx and Interaction Alerts*Flucytosine 500 MG Oral Capsule ORAL , Notes to Pharmacist: flucytosine 500 MG Oral CapsuleOriginal Medicationflucytosine 500 MG Oral Capsule *Reorder from [facility] for eRx and Interaction Alerts*Pravastatin Sodium 10 MG Oral Tablet ORAL , Notes to Pharmacist: pravastatin sodium 10 MG Oral TabletOriginal Medicationpravastatin sodium 10 MG Oral Tablet *Reorder from [facility] for eRx and Interaction Alerts*Meloxicam 15 MG Oral Tablet ORAL , Notes to Pharmacist: meloxicam 15 MG Oral TabletOriginal Medicationmeloxicam 15 MG Oral Tablet *Reorder from [facility] for eRx and Interaction Alerts*Losartan Potassium 100 MG Oral Tablet ORAL , Notes to Pharmacist: losartan potassium 100 MG Oral TabletOriginal Medicationlosartan potassium 100 MG Oral Tablet *Reorder from [facility] for eRx and Interaction Alerts*acetaminophen 325 MG Oral Tablet [Tylenol] ORAL , Notes to Pharmacist: acetaminophen 325 MG Oral Tablet [Tylenol]Original Medicationacetaminophen 325 MG Oral Tablet [Tylenol] *Reorder from [facility] for eRx and Interaction Alerts*amlodipine 10 MG Oral Tablet ORAL , Notes to Pharmacist: amlodipine 10 MG Oral TabletOriginal Medicationamlodipine 10 MG Oral Tablet *Reorder from [facility] for eRx and Interaction Alerts*Lactobacillus acidophilus [id number] UNT Oral Capsule ORAL , Notes to Pharmacist: Lactobacillus acidophilus [id number] UNT Oral CapsuleOriginal MedicationLactobacillus acidophilus [id number] UNT Oral Capsule *Reorder from [facility] for eRx and Interaction Alerts*levothyroxine sodium 0.112 MG Oral Tablet ORAL , Notes to Pharmacist: levothyroxine sodium 0.112 MG Oral TabletOriginal Medicationlevothyroxine sodium 0.112 MG Oral Tablet *Reorder from [facility] for eRx and Interaction Alerts*omeprazole 10 MG Delayed Release Oral Capsule ORAL , Notes to Pharmacist: omeprazole 10 MG Delayed Release Oral CapsuleOriginal Medicationomeprazole 10 MG Delayed Release Oral Capsule *Reorder from [facility] for eRx and Interaction Alerts*trazodone hydrochloride 100 MG Oral Tablet ORAL , Notes to Pharmacist: trazodone hydrochloride 100 MG Oral TabletOriginal Medicationtrazodone hydrochloride 100 MG Oral Tablet *Reorder from [facility] for eRx and Interaction Alerts*Medication List reviewed and reconciled with the patientTaking Metoprolol Tartrate 100 MG Oral Tablet ORAL , Notes to Pharmacist: metoprolol tartrate 100 MG Oral TabletOriginal Medicationmetoprolol tartrate 100 MG Oral Tablet *Reorder from [facility] for eRx and Interaction Alerts*Taking Flucytosine 500 MG Oral Capsule ORAL , Notes to Pharmacist: flucytosine 500 MG Oral CapsuleOriginal Medicationflucytosine 500 MG Oral Capsule *Reorder from [facility] for eRx and Interaction Alerts*Taking Pravastatin Sodium 10 MG Oral Tablet ORAL , Notes to Pharmacist: pravastatin sodium 10 MG Oral TabletOriginal Medicationpravastatin sodium 10 MG Oral Tablet *Reorder from [facility] for eRx and Interaction Alerts*Taking Meloxicam 15 MG Oral Tablet ORAL , Notes to Pharmacist: meloxicam 15 MG Oral TabletOriginal Medicationmeloxicam 15 MG Oral Tablet *Reorder from [facility] for eRx and Interaction Alerts*Taking Losartan Potassium 100 MG Oral Tablet ORAL , Notes to Pharmacist: losartan potassium 100 MG Oral TabletOriginal Medicationlosartan potassium 100 MG Oral Tablet *Reorder from [facility] for eRx and Interaction Alerts*Taking acetaminophen 325 MG Oral Tablet [Tylenol] ORAL , Notes to Pharmacist: acetaminophen 325 MG Oral Tablet [Tylenol]Original Medicationacetaminophen 325 MG Oral Tablet [Tylenol] *Reorder from [facility] for eRx and Interaction Alerts*Taking amlodipine 10 MG Oral Tablet ORAL , Notes to Pharmacist: amlodipine 10 MG Oral TabletOriginal Medicationamlodipine 10 MG Oral Tablet *Reorder from [facility] for eRx and Interaction Alerts*Taking Lactobacillus acidophilus [id number] UNT Oral Capsule ORAL , Notes to Pharmacist: Lactobacillus acidophilus [id number] UNT Oral CapsuleOriginal MedicationLactobacillus acidophilus [id number] UNT Oral Capsule *Reorder from [facility] for eRx and Interaction Alerts*Taking levothyroxine sodium 0.112 MG Oral Tablet ORAL , Notes to Pharmacist: levothyroxine sodium 0.112 MG Oral TabletOriginal Medicationlevothyroxine sodium 0.112 MG Oral Tablet *Reorder from [facility] for eRx and Interaction Alerts*Taking omeprazole 10 MG Delayed Release Oral Capsule ORAL , Notes to Pharmacist: omeprazole 10 MG Delayed Release Oral CapsuleOriginal Medicationomeprazole 10 MG Delayed Release Oral Capsule *Reorder from [facility] for eRx and Interaction Alerts*Taking trazodone hydrochloride 100 MG Oral Tablet ORAL , Notes to Pharmacist: trazodone hydrochloride 100 MG Oral TabletOriginal Medicationtrazodone hydrochloride 100 MG Oral Tablet *Reorder from [facility] for eRx and Interaction Alerts*Medication List reviewed and reconciled with the patient * Allergies: A ncef: Allergy - Onset Date 03/31/2013Product containing sulfonamide (product): Allergy - Onset Date 03/03/2013yesAllergies Verified. Objective: * Vitals: W t:230lbs, Wt-k.33 kg, Ht: 64.00 in, Ht-cm: 162.56 cm, BMI:39.48Index, Body Surface Area: 2.17. * Examination: C onstitutional: Constitutional T he patient is awake, alert, well developed, well groomed and well nourished. D ermatologic: Skin findings: S kin is thin, atrophic and lacking pedal hair. Nail pathology: N ails 1, 2, 3, 4, and 5 bilateral are elongated, thick, discolored, and dystrophic with subungual debris. They are painful to palpation. ? V ascular: Dorsalis pedis pulse: 1 /4 b ilateral. Posterior tibial pulse: 0 /4 b ilateral. Capillary refill: g reater than 3 seconds. Edema: N o edema, bilateral. N eurologic: Gross sensation G ross sensation is intact to light touch.? M usculoskeletal: Muscle Strength M uscle strength is 5/5 in regards to dorsiflexion, plantarflexion, inversion, and eversion in bilateral lower extremities. ? Assessment: * Assessment: 1. T rebecca mcgeeum - B35.1 (Primary) Plan: * Treatment: * Follow Up: 1 0-12 Weeks (Reason: At Risk Foot care, sooner if problems arise) Billing Information: * Procedure Codes: * Electronic signature of ASHWIN COSTA DPM on 04/25/2025 at 03:21 PM QUILLER TENDER Sign off status: Pending * Provider: Chavo Costa DPM Date: 1 Generated for [place] peterson/Celia/Adalberto on: 06/26/2024 03:21 PM QUILLER TENDER
[2025-04-25 14:18] LABS: Hematocrit 34.2 % (35.0-42.0); Hemoglobin 11.3 g/dL (11.7-13.8); Mean Corpuscular HGB Conc 33.0 g/dL (32-36); Mean Corpuscular Hemoglobin 33.2 pg (27.0-31.0); Mean Corpuscular Volume 100.6 fL (78.0-102.0); Platelet Count Result 214 K/mm3 (150-420); Red Blood Count 3.40 M/mm3 (4.20-5.40); White Blood Count 9.4 K/mm3 (4.8-10.8)
[2025-04-25 14:34] LABS: MALB Creatinine Ratio 94.8 mg/g (0-30)
--- OUTSIDE RECORDS SUMMARY | 2025-04-25 15:21 | XMS_ITS | Encounter Summary ---
Author Organization [facility] Address [address] [place] [address] Care Team Providers Care Plant Assigner Name Role Phone Tyree Cr MD Primary Care Provider Anya Lopez MD Unavailable [phone] Oli Marie MD Unavailable [phone] Juany Crocker PA-C Unavailable [phone] Manuela Conklin MD Unavailable Deana Bah ANP-BC Unavailable +3 Encounter Details Date Type Department Care Team (Late st Contact Info) Description 06/30/2021 Hospital Follow-up Call [facility] [address] [place] [address] Shantel Gill, RN Social History Tobacco Use Types Packs/Day Years Used Date Smoking Tobacco: Never Smokeless Tobacco: Never Alcohol Use Standard Drinks/Week Comments No 0 (1 standard drink = 0.6 oz pur e alcohol) AUDIT-C Answer Date Recorded Frequency of Alcohol Consumption Never 04/12/2019 Average Number of Drinks Not on file 019 Frequency of Binge Drinking Not on file 03/25 Comments No Sex and Gender Information Value Date Recorded Sex Assigned at Female 07/24/2024 11:23 AM SUPERVISOR BLEACH PLANT Legal Sex Female 10:24 PM CDT Gender Identity Female 05/14/2021 7:29 AM SUPERVISOR BLEACH PLANT Sexual Orientation Straight 05/14/2021 7: 29 AM SUPERVISOR BLEACH PLANT COVID-19 Exposure Response Date Recorded In the last 10 days, have yo u been in contact with someone who was confirmed or suspected to have Coronavirus/COVID-19? No / Unsure 07/02/2021 8:51 AM SUPERVISOR BLEACH PLANT documented as of this encounter Functional Status * RETIRED Are you deaf or do you have serious difficulty hearing Answer Date of Assessment Author Status No 06/27/2021 4:06 PM SUPERVISOR BLEACH PLANT Activ e * RETIRED Are you blind or do you have serious difficulty seeing, even when wearing glasses? Answer Date of Assessment Author Status No 06/27/2021 4:06 PM SUPERVISOR BLEACH PLANT Activ e * Do you have serious difficulty walking or climbing stairs? Answer Date of Assessment Author Status No 06/27/2021 4:06 PM SUPERVISOR BLEACH PLANT Carmelita Andrade R N Active * Do you have difficulty dressing or bathing? Answer Date of Assessment Author Status No 06/27/2021 4:06 PM SUPERVISOR BLEACH PLANT Carmelita Andrade R N Active * Because of a physical, mental, or emotional condition, do you have difficulty doing errands alone such as visiting a doctor's office or shopping? Answer Date of Assessment Author Status No 06/27/2021 4:06 PM SUPERVISOR BLEACH PLANT Carmelita Andrade R N Active documented as of this encounter Mental Status * Because of a physical, mental, or emotional condition, do you have serious difficulty concentrating, remembering, or making decisions? Answer Entry Date Author Status No 06/27/2021 4:06 PM SUPERVISOR BLEACH PLANT Carmelita Andrade R N Active documented in this encounter Plan of Treatment Upcoming Encounters Date Type Department Care Team (Late st Contact Info) Description 05/07/2025 1:30 PM SUPERVISOR BLEACH PLANT Office Visit [facility] [place] [phone] Deana Bah, ANP- [address] [place], [place] [id number] 05/08/2025 1:45 AM SUPERVISOR BLEACH PLANT [facility] [address] [place] [phone] Oli Marie MD [address] [place] [address] 08/15/2025 11:00 AM CDT Office Visit [facility] [address] [place] [address] Oli Marie MD [address] [place] [address] 08/15/2025 11:00 AM CDT Allied Health/Nurse Visit [address] [place] [address] Oli Marie MD [address] [place] [address] documented as of this encounter Visit Diagnoses Not on filedocumented in this encounter Additional Health Concerns Infection Onset Date Last Indicated Resolved Time COVID-19 Rule Out 08/01/2021 08/01/2021 08/01/2021 10:26 AM SUPERVISOR BLEACH PLANT COVID-19 Rule Out 08/01/2021 08/01/2021 08/01/2021 11:31 AM SUPERVISOR BLEACH PLANT documented as of this encounter Care Teams Plant Assigner Relationship Specialty Start Date End Date Tyree Cr MD [address] [place] [phone] PCP - General FAMILY PRACTICE 11/04/18 Anya Lopez MD [address] [place] [phone] [employer] INTERVENTIONAL CARDIOLOGY 11/20/20 12/13/24 Oli Marie MD [address] [place] [address] Consulting Physician CLINICAL CARDIAC ELECTROPHYSIOLOGY 02/25/21 Juany Crocker PA-C [address] [place] [address] Referring Physician PHYSICIAN CORPORATE OFFICER 12/07/23 Manuela Conklin MD [address] [place] [address] Consulting Physician CARDIOVASCULAR DISEASE 11/02/24 Deana Bah, LINDA- [address] [facility] [place] [address] Nurse Practitioner NURSE PRACTITIONER ADULT HEALTH 12/14/24 documented as of this encounter
--- OUTSIDE RECORDS SUMMARY | 2025-04-25 15:21 | XMS_ITS | Encounter Summary ---
Author Organization [facility] Address [address] [place] [address] Care Team Providers Care Senior Business Architect Name Role Phone Tyree Cr MD Primary Care Provider Anya Lopez MD Unavailable [phone] Oli Marie MD Unavailable [phone] Juany Crocker PA-C Unavailable [phone] Manuela Conklin MD Unavailable Deana Bah [facility]- Unavailable +-3 Encounter Details Date Type Department Care Team (Late st Contact Info) Description 08/07/2017 Abstract [facility] CONVERSION [address] [place] [address] , Generic Conversion, Social History Tobacco Use Types Packs/Day Years Used Date Smoking Tobacco: Never Comments Unknown Sex and Gender Information Value Date Recorded Sex Assigned at Female 07/24/2024 11:23 AM INFORMATICS COORDINATOR Legal Sex Female 10:24 PM CDT Gender Identity Female 05/14/2021 7:29 AM INFORMATICS COORDINATOR Sexual Orientation Straight 05/14/2021 7: 29 AM INFORMATICS COORDINATOR documented as of this encounter Plan of Treatment Upcoming Encounters Date Type Department Care Team (Late Contact Info) Description 05/07/2025 1:30 PM INFORMATICS COORDINATOR Office Visit [facility] [place] [address] Deana Bah, [facility]- [address] [place] [address] 05/08/2025 1:45 AM INFORMATICS COORDINATOR Allied Health/Nurse Visit [facility] [address] [place] [address] Oli Marie MD [address] [place], [place] [address] 08/15/2025 11:00 AM CDT Office Visit [facility] [place] [address] [place] [phone] Oli Marie MD [address] [place] [address] 08/15/2025 11:00 AM CDT Allied Health/Nurse Visit [facility] [place] [address] [place] [address] Oli Marie MD [address] [place], [place] [address] documented as of this encounter Visit Diagnoses Not on filedocumented in this encounter Additional Health Concerns Infection Onset Date Last Indicated Resolved Time COVID-19 Rule Out 06/24/2021 06/24/2021 06/24/2021 7:18 PM INFORMATICS COORDINATOR COVID-19 Rule Out 08/01/2021 08/01/2021 08/01/2021 10:26 AM INFORMATICS COORDINATOR COVID-19 Rule Out 08/01/2021 08/01/2021 08/01/2021 11:31 AM INFORMATICS COORDINATOR documented as of this encounter Care Teams Senior Business Architect Relationship Specialty Start Date End Date Tyree Cr MD [address] [place] [phone] PCP - General FAMILY PRACTICE 11/04/18 Anya Lopez MD [address] [place] [phone] [place] Repairer Maintenance Building INTERVENTIONAL CARDIOLOGY 11/20/20 12/13/24 Oli Marie MD [address] [place] [address] Consulting Physician CLINICAL CARDIAC ELECTROPHYSIOLOGY 02/25/21 Juany Crocker PA-C [address] [place] [address] Referring Physician PHYSICIAN COFFERDAM CONSTRUCTION SUPERVISOR 12/07/23 Manuela Conklin MD [facility] [place] [address] Consulting Physician CARDIOVASCULAR DISEASE 11/02/24 Deana Bah, ANP- [facility] [facility] [place] [address] Nurse Practitioner NURSE PRACTITIONER ADULT HEALTH 12/14/24 documented as of this encounter
--- OUTSIDE RECORDS SUMMARY | 2025-04-25 15:22 | XMS_ITS | Encounter Summary ---
Author Organization [facility] Address [address] [place] [address] Care Team Providers Care Dispensing Audiologist Name Role Phone Tyree Cr MD Primary Care Provider Anya Lopez MD Unavailable Oli Marie MD Unavailable [phone] Juany Crocker PA-C Unavailable [phone] Manuela Conklin MD Unavailable Deana Bah ANP-BC Unavailable +-3 Encounter Details Date Type Department Care Team (Late st Contact Info) Description 02/26/2022 Hospital Orders Only [facility] Anesthesia [address] [place] [address] Joycelyn Rosa RN Anesthesia Record Procedure Summary Procedure Name Responsible Anesthesiologist Anesthesia Start Time Anesthesia Stop Time XA A-FIB ABLATION Lizbet Hernandez MD,PHD 03/05/22 1147 02/21 08/12 1450 Events Date Time Event Comment 03/05/2022 1130 1130 AN Anesthesia Prepped 1147 An Start Patient ID and consent checked and patient reassessed. 1147 An Start Data 1155 Preoxygenation 1204 An Induction The patient was reevaluated immediately before moderate or deep sedation use and before anesthesia induction. 1207 An Intubation 1211 Anesthesia Ready 1322 Quick Note ACT 526 1332 Quick Note ACT 451 1351 Quick Note ACT 439 1414 Quick Note ACT 404 1430 An Extubation 1439 Quick Note ACT 167 1444 an stop data 1450 Post Anesthetic Care Handoff I completed my handoff to the receiving nurse during which we: 1. Identified the patient 2. Identified the responsible provider 3. Reviewed the pertinent medical history 4. Discussed the surgical course 5. Reviewed intra-op anesthesia management and issues during anesthesia 6. Set expectations for post-procedure period 7. Allowed opportunity for questions and acknowledgement of understanding. 1450 An Stop Meds * Agents No agents on file. * Blood No blood administrations on file. Lines, Drains, and Airways Type Details Placement Removal Peripheral IV Placement Date: 02/21 08/12; Placement Time: 1013; Placed Outside of This Facility?: No; Size: 20 G; Orientation: Right; Location: Hand; Site Prep: Chlorhexidine; Inserted By: DERRICK MCCLELLAN; Insertion attempts: 1; Ultrasound-guided Placement?: No; Patient Tolerance: Tolerated well; Removal Date: 03/06/22; Removal Time: 0813; Removal Reason: Patient Discharged 03/05/22 1013 by Quiana Anthony RN 03/06/22 0813 by Al Ferrara RN Peripheral IV Placement Date: 02/21 08/12; Placement Time: 1200; Placed Outside of This Facility?: No; Size: 18 G; Orientation: Left; Location: Hand; Site Prep: Chlorhexidine; Local Anesthetic: None; Insertion attempts: 1; Ultrasound-guided Placement?: No; Patient Tolerance: Tolerated well; Removal Date: 03/06/22; Removal Time: 0813; Removal Reason: Patient Discharged 03/05/22 1200 by Tom Cornell CRNA 03/06/22 0813 by lA Ferrara RN ETT Placement Date: 02/21 08/12; Placement Time: 1207; Placed Outside of This Facility?:No; Mask Ventilate: Prior to intubation, Easy; Size (mm) : 7; Endotracheal: Oral; Blade Type: MAC 3; Placement Method: Direct Laryngoscopy (blade type in comment); View Grade: 2; Viewable Anatomy: Epiglottis, Arytenoid, Vocal cords; Insertion Attempts: 1; Placement Verified By: Capnography, Auscultation, Chest Rise; Placed By: FLUORESCENT LIGHTING MODEL MAKER; Extubation Assessment: Tolerated well, Patient spontaneously breathing, Deep breathes w/equal chest movements, Able to swallow, Atraumatic; Removal Date: 03/05/22; Removal Time: 1433; Removal Person: FLUORESCENT LIGHTING MODEL MAKER; Removal Reason: End of Case 03/05/22 1207 by Tom Cornell CRNA 03/05/22 1433 by Tom Cornell CRNA Arterial Line Placement Date: 02/21 08/12; Placement Time: 1215 (created via procedure documentation); Placed Outside of This Facility?: No; Size: 20; Orientation: Right; Location: Radial; Local Anesthetic: None; Insertion Attempts: 1; Removal Date: 03/05/22; Removal Time: 1616 03/05/22 1215 by Tom Cornell CRNA 03/05/22 1616 by Rhiannon Mckeon RN documented in this encounter Social History Tobacco Use Types Packs/Day Years [...] Sex Assigned at Female 07/24/2024 11:23 AM DANCE COSTUME DESIGNER Legal Sex Female 10:24 PM CDT Gender Identity Female 05/14/2021 7:29 AM DANCE COSTUME DESIGNER Sexual Orientation Straight 05/14/2021 7: 29 AM DANCE COSTUME DESIGNER documented as of this encounter Functional Status * RETIRED Are you deaf or do you have serious difficulty hearing Answer Date of Assessment Author Status No 09/29/2021 1:30 PM CDT Activ e * RETIRED Are you blind or do you have serious difficulty seeing, even when wearing glasses? Answer Date of Assessment Author Status No 09/29/2021 1:30 PM CDT Activ e * Do you have serious difficulty walking or climbing stairs? Answer Date of Assessment Author Status No 09/29/2021 1:30 PM CDT Patrick Fermin RN Active * Do you have difficulty dressing or bathing? Answer Date of Assessment Author Status No 09/29/2021 1:30 PM KELLYT Patrick Fermin RN Active * Because of a physical, mental, or emotional condition, do you have difficulty doing errands alone such as visiting a doctor's office or shopping? Answer Date of Assessment Author Status No 09/29/2021 1:30 PM CDT Patrick Fermin RN Active documented as of this encounter Mental Status * Because of a physical, mental, or emotional condition, do you have serious difficulty concentrating, remembering, or making decisions? Answer Entry Date Author Status No 09/29/2021 1:30 PM CDT Patrick Fermin RN Active documented in this encounter Plan of Treatment Upcoming Encounters Date Type Department Care Team (Late st Contact Info) Description 05/07/2025 1:30 PM DANCE COSTUME DESIGNER Office Visit [facility] [address] [place] [address] Deana Bah, [address] [address] 05/08/2025 1:45 AM DANCE COSTUME DESIGNER Allied Health/Nurse Visit [facility] [address] [place] [address] Oli Marie MD [address] [place] [address] 08/15/2025 11:00 AM CDT Office Visit [facility] [place] [address] [place] [address] Oli Marie MD [address] [place] [address] 08/15/2025 11:00 AM CDT Allied Health/Nurse Visit [facility] [place] [address] Oli Marie MD [address] [place] [address] documented as of this encounter Goals Goal Patient Goal Type Associated Problems Recent Progress Patient-Stated? Author Patient will return to prior living situation and remain independent in ADLs upon discharge from [facility] General No Laurie Jacobs RN documented as of this encounter Visit Diagnoses Not on filedocumented in this encounter Care Teams Dispensing Audiologist Relationship Specialty Start Date End Date Tyree Cr MD [address] [place] [phone] PCP - General FAMILY PRACTICE 11/04/18 Anya Lopez MD [address] [place] [phone] [employer] [employer] Stock Clerk INTERVENTIONAL CARDIOLOGY 11/20/20 12/13/24 Oli Marie MD [address] [place] [address] Consulting Physician CLINICAL CARDIAC ELECTROPHYSIOLOGY 02/25/21 Juany Crocker PA-C [address] [place] [address] Referring Physician PHYSICIAN ORDNANCE TRUCK INSTALLATION MECHANIC 12/07/23 Manuela Conklin MD [address] [place] [address] Consulting Physician CARDIOVASCULAR DISEASE 11/02/24 Deana Bah ANP- [address] [place] [address] Nurse Practitioner NURSE PRACTITIONER ADULT HEALTH 12/14/24 documented as of this encounter
--- OUTSIDE RECORDS SUMMARY | 2025-04-25 15:22 | XMS_ITS | Encounter Summary ---
Author Organization [facility] Address [address] [place] [address] Care Team Providers Care Tying In Machine Operator Name Role Phone Tyree Cr MD Primary Care Provider Anya Lopez MD Unavailable [phone] Oli Marie MD Unavailable [phone] Juany Crocker PA-C Unavailable [phone] Manuela Conklin MD Unavailable Deana Bah [facility]- Unavailable +-3 Encounter Details Date Type Department Care Team (Late Contact Info) Description 10/29/2018 Abstract [facility] CONVERSION [address] [place] [address] , Generic Conversion, Social History Tobacco Use Types Packs/Day Years Used Date Smoking Tobacco: Never Comments Unknown Sex and Gender Information Value Date Recorded Sex Assigned at Female 07/24/2024 11:23 AM RETAIL MANAGEMENT KEYHOLDER Legal Sex Female 10:24 PM CDT Gender Identity Female 05/14/2021 7:29 AM RETAIL MANAGEMENT KEYHOLDER Sexual Orientation Straight 05/14/2021 7: 29 AM RETAIL MANAGEMENT KEYHOLDER documented as of this encounter Plan of Treatment Upcoming Encounters Date Type Department Care Team (Late Contact Info) Description 05/07/2025 1:30 PM RETAIL MANAGEMENT KEYHOLDER Office Visit [facility] [address] Deana Bah, [facility]- [address] [place] [address] 05/08/2025 1:45 AM RETAIL MANAGEMENT KEYHOLDER Allied Health/Nurse Visit [facility] [address] [place] [address] Oli Marie MD [address] [place], [place] [address] 08/15/2025 11:00 AM CDT Office Visit [facility] [place] [address] [place] [address] Oli Marie MD [address] [place] [address] 08/15/2025 11:00 AM CDT Allied Health/Nurse Visit [facility] [place] [address] [place] [address] Oli Marie MD [address] [place], [place] [address] documented as of this encounter Visit Diagnoses Not on filedocumented in this encounter Additional Health Concerns Infection Onset Date Last Indicated Resolved Time COVID-19 Rule Out 06/24/2021 06/24/2021 06/24/2021 7:18 PM RETAIL MANAGEMENT KEYHOLDER COVID-19 Rule Out 08/01/2021 08/01/2021 08/01/2021 10:26 AM RETAIL MANAGEMENT KEYHOLDER COVID-19 Rule Out 08/01/2021 08/01/2021 08/01/2021 11:31 AM RETAIL MANAGEMENT KEYHOLDER documented as of this encounter Care Teams Tying In Machine Operator Relationship Specialty Start Date End Date Tyree Cr MD [address] [place] [phone] PCP - General FAMILY PRACTICE 11/04/18 Anya Lopez MD [address] [place] [phone] [place] Computer Science Teacher INTERVENTIONAL CARDIOLOGY 11/20/20 12/13/24 Oli Marie MD [address] [place] [address] Consulting Physician CLINICAL CARDIAC ELECTROPHYSIOLOGY 02/25/21 Juany Crocker PA-C [address] [place] [address] Referring Physician PHYSICIAN FINGERNAIL FORMER 12/07/23 Manuela Conklin MD [address] [place] [address] Consulting Physician CARDIOVASCULAR DISEASE 11/02/24 Deana Bah, ANP- [address] [facility] [address] Nurse Practitioner NURSE PRACTITIONER ADULT HEALTH 12/14/24 documented as of this encounter
--- OUTSIDE RECORDS SUMMARY | 2025-04-25 15:22 | XMS_ITS | Clinical Summary ---
Author Organization [facility] Address [address] [place] [address] Care Team Providers Care Truss Maker Name Role Phone Tyree Retana MD Primary Care Provider Oli Millard MD Unavailable [phone] Juany Crocker PA-C Unavailable [phone] Manuela Conklin MD Unavailable Deana Bah ANP-BC Unavailable [phone] Allergies Active Allergy Reactions Criticality Noted Date Comments Cefazolin Rash Low 03/31/2013 Cephalosporins Rash Low 10/25/2014 Oxcarbazepine Hives 10/29/2015 oxcarbazepine Sulfa Antibiotics Rash Low 10/25/2014 Substance with sulfonamide structure and antibacterial mechanism of action (substance) Medications levothyroxine 50 MCG tabletIndication s:Hypothyroidism Take 1 tablet (50 mcg total) by mouth daily. Indications: Underactive Thyroid 2 9 Active trazodone 50 MG tabletIndication s:Depression Take 1 tablet (50 mg total) by mouth nightly at bedtime. Indications: Depression 1 Active Multiple Vitamins-Mineral s (OCUVITE ADULT 50+ OR)Indications:s upplement Take 1 tablet by mouth daily. Indications: supplement 1 Active atorvastatin 40 MG tabletIndication s:Hyperlipidemia Take 1 tablet (40 mg total) by mouth daily. Indications: High Amount of Fats in the Blood 1 Active aspirin EC 81 MG tablet Take 1 tablet (81 mg total) by mouth daily. Active DULoxetine HCl 60 MG Capsule Delayed Release Sprinkle Take 60 mg by mouth daily. 2 Active famotidine (PEPCID) 20 MG tablet Take 1 tablet (20 mg total) by mouth 2 (two) times daily. Active losartan (COZAAR) 100 MG tablet Take 1 tablet (100 mg total) by mouth daily. 4 Active budesonide EC (ENTOCORT EC) 3 MG capsule Take 1-3 capsules (3-9 mg total) by mouth every morning. Active lidocaine 4 % patch Place 2 patches onto the skin daily. Remove & Discard patch within 12 hours or as directed by 30 patch 5 Active metoprolol succinate ER (TOPROL-XL) 50 MG 24 hr tablet Take 1 tablet (50 mg total) by mouth daily. 90 tablet 3 5 Active dofetilide (TIKOSYN) 250 MCG capsuleIndicatio ns:Persistent atrial fibrillation (CMS/HCC HHS/HCC) TAKE 1 CAPSULE BY MOUTH EVERY 12 HOURS 180 capsule 5 Active Active Problems Problem Noted Date Diagnosed Date Encounter for monitoring dofetilide therapy 07/22 AV block, 2nd degree 04/16/2023 Pacemaker 04/16/2023 Primary hypertension 01/07/2022 Coronary artery disease invo lving [place] coronary artery of [place] heart without angina pectoris 01/07/2022 A-fib 09/29/2021 Persistent atrial fibrillation 06/28/2021 Presence of Watchman left atrial appendage closu re device 06/28/2021 Resolved Problems Problem Noted Date Diagnosed Date Resolved Date Fall 08/17/2024 12/04/2024 Paroxysmal atrial fibrillation 06/27/2021 06/28/2021 Encounters Date Type Department Care Team Description 03/09/2025 11:32 AM CDT - 03/09/2025 11:59 PM CDT Hospital Encounter [address] [address] Pia Martinez, Discharge Disposition: Home or Self Care (Routine Discharge) 02/26/2025 Telephone [facility] [address] [place] [address] Oli Millard MD Medication 01/31/2025 2:45 PM CDT Allied Health/Nurse Visit [facility] [address] [place] [address] Oli Millard MD In Clinic Device Check 01/31/2025 2:45 PM CDT Office Visit [facility] [address] [place] [address] Juany Crocker PA-C Follow Up 01/31/2025 2:16 PM CDT - 01/31/2025 11:59 PM CDT Hospital Encounter [facility] [address] [place] [address] Juany Crocker PA-C Discharge Disposition: Home or Self Care (Routine Discharge) 01/31/2025 Travel 01/25/2025 Orders Only [facility] [address] [place] [address] Oli Millard MD from Last 3 Months Immunizations Immunization Administration Dates Next Due Tdap (Boostrix) 08/17/2024 Social History Tobacco Use Types Packs/Day Years Used Date Smoking Tobacco: Never Smokeless Tobacco: Never Alcohol Use Standard Drinks/Week Comments No 0 (1 standard drink = 0.6 oz pur e alcohol) [facility] Utilities Answer Date Recorded In the past 12 months has Qri[employer], oil, or water [employer] threatened to shut off services in your home? No 08/17/2024 Humiliation, Afraid, Rape, and Kick questionnair e Answer Date Recorded Within the last year, have y ou been afraid of your partner or ex-partner? No 08/17/2024 Within the last year, have y ou been humiliated or emotionally abused in other ways by your partner or ex-partner? No Within the last year, have y ou been kicked, hit, slapped, or otherwise physically hurt by your partner or ex-partner? No 08/17/2024 Within the last year, have y ou been raped or forced to have any kind of sexual activity by your partner or ex-partner? No 08/17/2024 AUDIT-C Answer Date Recorded Frequency of Alcohol Consumption Never 04/12/2019 Average Number of Drinks Not on file 019 Frequency of Binge Drinking Not on file 03/25 Overall Financial Resource Strain (CARDIA) Answe r Date Recorded How hard is it for you to pa y for the very basics like food, housing, medical care, and heating? Not hard at all 08/17/2024 [facility] [place] [facility] Occupat ional Health - Occupational Stress Questionnaire Answer Date Recorded Do you feel stress - tense, restless, nervous, or anxious, or unable to sleep at night because your mind is troubled all the time - these days? Not at all 08/17/2024 Hunger Vital Sign Answer Date Recorded Within the past 12 months, y ou worried that your food would run out before you got the money to buy more. Never true 08/18/19 25 Within the past 12 months, t he food you bought just didn't last and you didn't have money to get more. Never true 08/17/2024 PRAPARE - Transportation Answer Date Re corded In the past 12 months, has l ack of transportation kept you from medical appointments or from getting medications? No 07/23 In the past 12 months, has l ack of transportation kept you from meetings, work, or from getting things needed for daily living? No 08/17/2024 Housing Stability Vital Sign Answer Brayan e Recorded In the last 12 months, was t here a time when you were not able to pay the mortgage or rent on time? No 08/17/2024 In the past 12 months, how m any times have you moved where you were living? 0 08/17/2024 At any time in the past 12 m [facility], were you homeless or living in a intermediate (including now)? No 08/17/2024 Comments No Sex and Gender Information Value Date Recorded Sex Assigned at Female 07/24/2024 11:23 AM FLAT CUTTER Legal Sex Female 10:24 PM CDT Gender Identity Female 05/14/2021 7:29 AM FLAT CUTTER Sexual Orientation Straight 05/14/2021 7: 29 AM FLAT CUTTER Last Filed Vital Signs Vital Sign Reading Time Taken Comments Blood Pressure 145/67 03/09/2025 12:40 PM CDT Pulse 98 03/09/2025 12:40 PM CDT Temperature 36.1 C (97 F) 08/29/2024 8:05 AM CDT Respiratory Rate 18 01/31/2025 2:33 PM CDT Oxygen Saturation 94% 03/09/2025 12: 40 PM CDT Inhaled Oxygen Concentration - - Weight 106.5 kg (234 lb 12.8 oz) 01/31/2025 2:33 PM CDT Height 160 cm (5' 3) 01/31/2025 2:33 PM CDT Body Mass Index 41.59 01/31/2025 2:33 PM CDT Plan of Treatment Upcoming Encounters Date Type Department Care Team (Late st Contact Info) Description 05/07/2025 1:30 PM FLAT CUTTER Office Visit [facility] [place] [address] [place] [address] Deana Bah, [facility] [address] [place] [address] 05/08/2025 1:45 AM FLAT CUTTER Allied Health/Nurse Visit [facility] [address] [place] [address] Oli Millard MD [address] [place] [address] 08/15/2025 11:00 AM CDT Office Visit [facility] [place] [address] [place] [address] Oli Millard MD [address] [place] [address] 08/15/2025 11:00 AM CDT Allied Health/Nurse Visit [facility] [place] [address] [place] [address] Oli Millard MD [address] [place], [place] [id number] Health Maintenance Due Date Last Done Comments Depression Screening PHQ-9 1963 Hepatitis C 1969 Zoster Vaccines (1 of 2) 2001 RSV Immunization or 60+ Years (1 - Risk 60-74 years 1-dose series) 2011 Annual Medicare Wellness Visit 2016 Pneumococcal Vaccine: 50+ Years (2 of 2 - PCV) 06/23/2019 06/23/2018 COVID-19 Vaccine (3 - season) 2025 08/02/2020, 07/12/2020 ASCVD LDL 01/24/2025 01/25/2024, 06/11/2021 Influenza Adult (#1) 2025 03/19/2022, 06/25/2021, 02/20/2020, Additional history exists Mammogram Screening 08/02/2026 08/02/2024, 07/22/2023, 06/22/2022, Additional history exists Colorectal Cancer Screening Colonoscopy (10 Years) 01/05/2033 01/05/2023, 01/05/2023, DTaP, Tdap and Td Vaccines (2 - Td or Tdap) 08/17/2034 08/17/2024 Dexa Scan (General) Completed 12/30/2021, Hepatitis A Vaccines Aged Out No long er eligible based on patient's age to complete this topic Meningococcal B Vaccine Aged Out No l onger eligible based on patient's age to complete this topic Meningococcal Vaccine Aged Out No yaritza kelsey eligible based on patient's age to complete this topic RSV Immunizations Under 20 Months Aged Out No longer eligible based on patient's age to complete this topic Goals Goal Patient Goal Type Associated Problems Recent Progress Patient-Stated? Author Patient will return to prior living situation and remain independent in ADLs upon discharge from hospital General Laurie Emmanuel RN Medical Devices Implanted Type Area Station Installer Device Identifier Shelf Expiration Date Model / Serial / Lot 27mm Watchman Tammy Closure Device- Implanted:08/2021 by Adamaris Enriquez MD (Quantity not on file) Closure Device Sharematic KARIE 04/13/2024 [id number] / / [id number] Medtronic Ra-10/02/2020 Implanted:09/21 (Quantity not on file) Lead Implant Right: Atrium [employer] [id number] / [id number] / Medtronic Rv-10/02/2020 Implanted:09/21 (Quantity not on file) Lead Implant Right: Ventricle [employer] [id number] / [id number] / Medtronic Shell Mri Dr-10/02/2020 Implanted:09/21 (Quantity not on file) Pacemaker [employer] [id number] / [id number] / Description:MRI Conditional under following conditions: Static magnetic field of 1.5 T or 3 T, Max spatial gradient field of 2000 Gauss/cm or less, Max slew rate 2000 T/m/s, 1.5 T whole body PHONG of 2 W /kg or less in Normal operating mode , Head PHONG 3.2 W/kg or less, 3T B1+EMANUEL must be 2.8 mT or less for isocenter inferior to C7, Scans can be performed without B1+EMANUEL restriction at 3T when isocenter is at or superior to C7 (4W/kg or less whole body) Procedures Procedure Name Priority Date/Time Associated Diagnosis Comments MRI SHOULDER RT WO CON Routine 03/09/2025 2:46 PM CDT Primary osteoarthritis of right shoulder XR CHEST PA+LAT Routine 03/09/2025 12:08 PM CDT History of pacemaker ECG 12-LEAD Routine 01/31/2025 2:23 PM CDT Persistent atrial fibrillation (CMS/HCC HHS/HCC) MG SCREENING W LEANDRO LUCI DIGI Routine 08/02/2024 12:23 PM CDT Visit for screening mammogram LIPID PANEL Routine 01/25/2024 COLONOSCOPY 01/05/2023 6:54 AM CDT BONE DENSITY/DEXA Routine 12/30/2021 11: 32 AM CDT Postmenopausal from Last 3 Months or Most Recently Relevant to Health Maintenance Results * MRI SHOULDER RT WO CON (03/09/2025 2:46 PM CDT) Anatomical Region Laterality Modality Shoulder Magnetic Resonan ce 03/12/2025 2:26 PM CDT Impressions 03/12/2025 2:54 PM CDT IMPRESSION: Advanced arthritic changes right glenohumeral joint. Joint effusion. Small bursal fluid collection. No definitive full-thickness rotator cuff tear. Ordered By: PIA MARTINEZ Interpreted By: Hany Manzo MD, 03/12/2025 2:26 PM Narrative 03/12/2025 2:54 PM CDT [address] [address] 03/09/2025, 1254 hours. HISTORY: Primary osteoarthritis right shoulder. Right shoulder pain for one year. Unable to raise arm without pain. EXAM: MRI right shoulder without contrast. MR imaging was performed in the axial, the oblique sagittal and the oblique coronal planes utilizing T1, fat sat proton density and fat sat T2 sequence images. Correlation to MR imaging 08/04/2013 and to radiographic imaging 08/27/2023. FINDINGS: Moderate to advanced arthritic changes right glenohumeral joint with asymmetric joint space narrowing, asymmetric articular cartilage thinning on the head of the humerus, large marginal spurring from the inferior aspect of the humeral head neck junction, small subcortical cysts in the glenoid of the scapula and multilobulated. Labral cyst or cystic appearing distention of the subcoracoid recess anteromedial to the glenoid of the scapula. No definite fluid extension through the rotator cuff and no definitive full- thickness rotator cuff tear. Tiny amount of fluid in the subacromial and subdeltoid bursa. There is some minimal increased signal near the bursal surface side of the myotendinous junction of the supraspinatus which may indicate some minimal tendinitis, tendinosis or unlikely of minimal surface tear. No evidence of tear of the infraspinatus nor subscapularis tendons. The tendon the long head of the biceps is intact and normal in appearance. Procedure Note Hany Manoz MD - 03/12/2025 [facility] [address] [place], [place] [address] 03/09/2025, 1254 hours. HISTORY: Primary osteoarthritis right shoulder. Right shoulder pain forone year. Unable to raise arm without pain. EXAM: MRI right shoulder without contrast. MR imaging was performed in the axial, the oblique sagittal and theoblique coronal planes utilizing T1, fat sat proton density and fat sat [id number] images. Correlation to MR imaging 08/04/2013 and to radiographicimaging 08/27/2023. FINDINGS: Moderate to advanced arthritic changes right glenohumeral jointwith asymmetric joint space narrowing, asymmetric articular cartilagethinning on the head of the humerus, large marginal spurring from theinferior aspect of the humeral head neck junction, small subcortical cystsin the glenoid of the scapula and multilobulated. Labral cyst or cysticappearing distention of the subcoracoid recess anteromedial to the glenoidof the scapula. No definite fluid extension through the rotator cuff and no definitivefull- thickness rotator cuff tear. Tiny amount of fluid in the subacromialand subdeltoid bursa. There is some minimal increased signal near thebursal surface side of the myotendinous junction of the supraspinatuswhich may indicate some minimal tendinitis, tendinosis or unlikely ofminimal surface tear. No evidence of tear of the infraspinatus nor subscapularis tendons. Thetendon the long head of the biceps is intact and normal in appearance. IMPRESSION: Advanced arthritic changes right glenohumeral joint. Joint effusion. Smallbursal fluid collection. No definitive full-thickness rotator cuff tear. Ordered By: PIA MARTINEZ Interpreted By: Hany Manzo MD, 03/12/2025 2:26 PM us Pia Martinez DO MRI Final Re sult * XR CHEST PA+LAT (03/09/2025 12:08 PM CDT) Anatomical Region Laterality Modality Chest Radiographic Leanna ging 03/09/2025 1:00 PM CDT Impressions 03/09/2025 1:02 PM CDT IMPRESSION: 1. Bibasilar patchy airspace opacities. Findings may represent areas of atelectasis or aspiration/pneumonia. Continued attention on follow-up is recommended. 2. Possible trace bilateral pleural effusions. 3. Stable position of left chest wall pacemaker is a transvenous leads. No radiographic evidence of lead discontinuity or fracture. 4. No pneumothorax. Referred By: PIA MARTINEZ Interpreted By: Court Dawkins MD, 03/09/2025 1:00 PM Narrative 03/09/2025 1:02 PM CDT [address] [address] PROCEDURE: XR CHEST PA+LAT. 03/09/2025 12:03 PM. TECHNIQUE: 2 views (PA and Lateral) of the chest were performed. HISTORY: Pacemaker placement. MRI clearance. COMPARISON: PA and lateral chest radiograph, 08/16/2024. FINDINGS: Support Devices: Stabilization left chest wall pacemaker is a transvenous leads. Cardiac Silhouette/Mediastinum/Roula: The cardiac, mediastinal, and hilar contours are within normal limits for age. Lungs/Pleural Spaces: Possible trace bilateral pleural effusion. Bibasilar patchy airspace opacities. No pneumothorax. Chest Wall/Diaphragm/Upper Abdomen: The thoracic musculoskeletal structures and the upper abdomen are unchanged in appearance. Procedure Note Court Dawkins MD - 03/09/[address] [address] PROCEDURE: XR CHEST PA+LAT. 03/09/2025 12:03 PM. TECHNIQUE: 2 views (PA and Lateral) of the chest were performed. HISTORY: Pacemaker placement. MRI clearance. COMPARISON: PA and lateral chest radiograph, 08/16/2024. FINDINGS: Support Devices: Stabilization left chest wall pacemaker is a transvenousleads. Cardiac Silhouette/Mediastinum/Roula: The cardiac, mediastinal, and hilarcontours are within normal limits for age. Lungs/Pleural Spaces: Possible trace bilateral pleural effusion.Bibasilar patchy airspace opacities. No pneumothorax. Chest Wall/Diaphragm/Upper Abdomen: The thoracic musculoskeletalstructures and the upper abdomen are unchanged in appearance. IMPRESSION: 1. Bibasilar patchy airspace opacities. Findings may represent areas ofatelectasis or aspiration/pneumonia. Continued attention on follow-up isrecommended. 2. Possible trace bilateral pleural effusions. 3. Stable position of left chest wall pacemaker is a transvenous leads.No radiographic evidence of lead discontinuity or fracture. 4. No pneumothorax. Referred By: PIA MARTINEZ Interpreted By: Court Dawkins MD, 03/09/2025 1:00 PM Shane Benitez MD GENERAL IMAGING Final Result * ECG 12 lead (HOSPITAL PERFORMED ONLY) (01/31/2025 2:23 PM CDT) 01/31/2025 2:[address] [facility] - 02/04/2025 1:[address] PM [address]T [address] [place] [address] Test Date: 2025-01-31 Pat Name: RADHA SCHUSTER Department: 3 Room: Gender: Female Tray Line Supervisor: MR : 1950 Requested By: OLI MILLARD Order Number: [id number] Reading MD: Oli Millard Measurements Intervals Mathis Rate: 82 P: 86 VA: 176 QRS: -78 QRSD: 152 T: 73 QT: 444 QTc: 519 Interpretive Statements ELECTRONIC ATRIAL PACEMAKER ELECTRONIC VENTRICULAR PACEMAKER ABNORMAL RHYTHM ECG Procedure Note Oli Millard MD - 02/04/[address] [place] [address] Test Date: 2025-01-31 Pat Name: RADHA SCHUSTER Department: 3 Room: Gender: Female Tray Line Supervisor: : 1950 Requested By: OLI MILLARD Order Number: [id number] Reading MD: Oli Millard Measurements Intervals Mathis Rate: 82 P: 86 VA: 176 QRS: -78 QRSD: 152 T: 73 QT: 444 QTc: 519 Interpretive Statements ELECTRONIC ATRIAL PACEMAKER ELECTRONIC VENTRICULAR PACEMAKER ABNORMAL RHYTHM ECG Oli Millard MD ECG ORDERABLES Final Res ult [facility] * MG SCREENING W LEANDRO LUCI DIGI (08/02/2024 12:23 PM CDT) Anatomical Region Laterality Modality Breast Bilateral Mammography 08/02/2024 10:4 7 AM CDT Impressions 08/02/2024 10:48 AM CDT IMPRESSION: No suspicious change since the previous exams. Recommendation: 1: Routine Screening Bilateral in 1 Year Assessment: ACR BI-RADS 2 - BENIGN FINDING(S) Ordered By: TYREE RETANA Interpreted By: Rocky Salomon MD, 08/02/2024 10:47 AM Narrative 08/02/2024 10:48 AM CDT [place] [address] [facility] [place] [address] Examination: Digital screening mammogram with CAD. Clinical history: Asymptomatic patient presents for routine screening. Comparison: 07/22/2023, 06/22/2022, 04/15/2021, 04/05/2020. Technique: Bilateral digital mammograms. The exam was interpreted with the use of a computer-aided detection (CAD) system. Additional 3-D tomosynthesis images were acquired. Tissue density: There are scattered areas of fibroglandular density. Findings: The breast tissue contains scattered fibroglandular densities. Nodular fibroglandular pattern is similar to previous. Benign-appearing calcification noted. Pacemaker generator on the left again evident. No suspicious mass, microcalcification or area of architectural distortion can be identified. From a mammographic standpoint, routine followup in one year would seem adequate. Tyree Retana MD MAMMO Final Resul t * LIPID PANEL (01/25/2024) CHOLESTEROL 128 TRIGLYCERIDES 119 HDL 48 LDL (CALCULATED) 59 VLDL CALCULATION 21 Narrative Resulting Agency Comment [facility], [place] Tyree Retana MD LABORATORY Final Resul t * Colonoscopy (01/05/2023 6:54 AM CDT) Franki Heard MD GI PROCEDURE ORDERABLES Final Result * BONE DENSITY/DEXA (12/30/2021 11:32 AM CDT) Anatomical Region Laterality Modality Bone Bone Density 12/30/2021 2:08 PM CDT Impressions 12/30/2021 2:10 PM CDT Impression: BMD measured at AP lumbar spine, both total hips and both femoral necks all at WHO category level of normal. Ordered By: TYREE RETANA Interpreted By: Hany Manzo MD, 12/30/2021 2:08 PM Narrative 12/30/2021 2:10 PM CDT Examination: DEXA Bone densitometry EXAM DATE: 12/30/2021 11:32 AM Clinical history: Postmenopausal. Calcium supplementation. Vitamin D use. Prior hysterectomy. Dairy product consumption. Technique: DEXA bone minimal density evaluation was performed in the AP projection over the lumbar spine and over both hips in the AP projection utilizing standard imaging techniques. Assessment: The BMD measured at the AP spine L1-L4 is 1.386 g/cm? with a T-score of 3.1 and a Z-Score of 5.2. Bone density is up to 10% below young normal. This patient is considered normal according to the World Health Organization (WHO) criteria. Fracture risk is low. The BMD measured at the AP lumbar spine has increased 0.082 g/sq cm since study 09/03/2020. The BMD measured at the femur total left is 1.276 g/cm? with a T-score of 2.7 and a Z-Score of 4.3. Bone density is up to 10% below young normal. This patient is considered normal according to the World Health Organization (WHO) criteria. Fracture risk is low. The BMD measured at the left total hip has increased 0.020 g/sq cm since study 09/03/2020. The BMD measured at the left femoral neck is 1.158 g/sq cm resulting in a T score of 2.8 and a Z score of 4.6, values at the WHO category level of normal. The BMD measured at the femur total right is 1.239 g/cm? with a T-score of 2.4 and aZ-Score of 4.0. Bone density is up to 10% below young normal. This patient is considered normal according to the World Health Organization (WHO) criteria. Fracture risk is low. The BMD measured at the right total hip has decreased 0.015 g/sq cm since study 09/03/2020. The BMD measured at the right femoral neck is 1.018 g/sq cm resulting in a T score of 1.5 and a Z score of 3.4, values at the WHO category level of normal. FRAX results: 10 year probability of major osteoporotic fracture 4.8% and of hip fracture 0.1%. Recommendations: All patients should ensure an adequate intake of dietary calcium and vitamin D. The NOF recommend adults under the age of 50 need 1000 mg of calcium and 400-800 IU of vitamin D daily. Effective therapy for the prevention and treatment of osteoporosis include biphosphonates. Follow-up: People with diagnosed cases of osteoporosis or at high risk for fracture should have regular bone mineral density test. For patients eligible for Medicare, routine testing is allowed once every 2 years. Testing frequency can be increased to one year for patients who have rapidly progressing disease, those who are receiving or discontinuing medical therapy to restore bone mass, or have additional risk factors. Based on these results, a followup exam is recommended in no earlier than 2 years. Procedure Note Hany Manzo MD - 12/30/2021 Examination: DEXA Bone densitometry EXAM DATE: 12/30/2021 11:32 AM Clinical history: Postmenopausal. Calcium supplementation. Vitamin D use.Prior hysterectomy. Dairy product consumption. Technique: DEXA bone minimal density evaluation was performed in the APprojection over the lumbar spine and over both hips in the AP projectionutilizing standard imaging techniques. Assessment: The BMD measured at the AP spine L1-L4 is 1.386 g/cm? with a T-score of3.1 and a Z-Score of 5.2. Bone density is up to 10% below young normal.This patient is considered normal according to the World HealthOrganization (WHO) criteria. Fracture risk is low. The BMD measured at the AP lumbar spine has increased 0.082 g/sq cm sincestudy 09/03/2020. The BMD measured at the femur total left is 1.276 g/cm? with a T-score of2.7 and a Z-Score of 4.3. Bone density is up to 10% below young normal.This patient is considered normal according to the World HealthOrganization (WHO) criteria. Fracture risk is low. The BMD measured at the left total hip has increased 0.020 g/sq cm sincestudy 09/03/2020. The BMD measured at the left femoral neck is 1.158 g/sq cm resulting in aT score of 2.8 and a Z score of 4.6, values at the WHO category level ofnormal. The BMD measured at the femur total right is 1.239 g/cm? with a T-score of2.4 and aZ-Score of 4.0. Bone density is up to 10% below young normal.This patient is considered normal according to the World HealthOrganization (WHO) criteria. Fracture risk is low. The BMD measured at the right total hip has decreased 0.015 g/sq cm sincestudy 09/03/2020. The BMD measured at the right femoral neck is 1.018 g/sq cm resulting in aT score of 1.5 and a Z score of 3.4, values at the WHO category level ofnormal. FRAX results: 10 year probability of major osteoporotic fracture 4.8% andof hip fracture 0.1%. Recommendations: All patients should ensure an adequate intake of dietary calcium andvitamin D. The NOF recommend adults under the age of 50 need 1000 mg ofcalcium and 400-800 IU of vitamin D daily. Effective therapy for theprevention and treatment of osteoporosis include biphosphonates. Follow-up: People with diagnosed cases of osteoporosis or at high risk for fractureshould have regular bone mineral density test. For patients eligible forMedicare, routine testing is allowed once every 2 years. Testing frequencycan be increased to one year for patients who have rapidly progressingdisease, those who are receiving or discontinuing medical therapy torestore bone mass, or have additional risk factors. Based on these results, a followup exam is recommended in no earlier than2 years. Impression: BMD measured at AP lumbar spine, both total hips and both femoral necksall at WHO category level of normal. 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 Advance Directives and Living Will 03/09/2022 2:23 PM 04/02/2022 [facility] [facility] * Full Code (Latest Code Status on File) Date Activated Date Inactivated Comments 08/23/2024 11:34 AM 08/29/2024 4:54 PM * Full Code Date Activated Date Inactivated Comments 08/17/2024 4:29 PM 08/23/2024 11:02 AM * Full Code Date Activated Date Inactivated Comments 03/05/2022 2:52 PM 03/06/2022 1:20 PM * Full Code Date Activated Date Inactivated Comments 09/29/2021 2:34 PM 10/03/2021 2:23 PM * Full Code Date Activated Date Inactivated Comments 06/27/2021 1:42 PM 06/28/2021 5:13 PM Care Teams Truss Maker Relationship Specialty Start Date End Date Tyree Retana MD [address] [place] [phone] PCP - General FAMILY PRACTICE 11/04/18 Oli Millard MD [address] [place] [address] Consulting Physician CLINICAL CARDIAC ELECTROPHYSIOLOGY 02/25/21 Juany Crocker PA-C [address] [place] [address] Referring Physician PHYSICIAN LABOR RELATIONS SUPERVISOR 12/07/23 Manuela Conklin MD [address] [place] [address] [place] [address] Consulting Physician CARDIOVASCULAR DISEASE 11/02/24 Deana Bah, ANP- [address] [phone] Nurse Practitioner NURSE PRACTITIONER ADULT HEALTH 12/14/24
--- OUTSIDE RECORDS SUMMARY | 2025-04-25 15:22 | XMS_ITS | Encounter Summary ---
Author Organization [facility] Address [address] [place] [address] Care Team Providers Care Clinical Dental Technician Name Role Phone Tyree Cr MD Primary Care Provider Anya Lopez MD Unavailable [phone] Oli Marie MD Unavailable [phone] Juany Crocker PA-C Unavailable [phone] Manuela Conklin MD Unavailable Deana Bah ANP-BC Unavailable [phone] Encounter Details Date Type Department Care Team (Late st Contact Info) Description 10/07/2021 Hospital Follow-up Call [facility] [address] [place], [place] [phone] Shantel Gill, RN Social History Tobacco Use [...] Sex Assigned at Female 07/24/2024 11:23 AM TYPING TEACHER Legal Sex Female 10:24 PM CDT Gender Identity Female 05/14/2021 7:29 AM TYPING TEACHER Sexual Orientation Straight 05/14/2021 7: 29 AM TYPING TEACHER COVID-19 Exposure Response Date Recorded In the last 10 days, have yo u been in contact with someone who was confirmed or suspected to have Coronavirus/COVID-19? No / Unsure 09/29/2021 1:23 PM CDT documented as of this encounter Functional Status [...] PM CDT Patrick Fermin RN Active * Because of [...] st Contact Info) Description 05/07/2025 1:30 PM TYPING TEACHER Office Visit [facility] [place] [address] Deana Bah, [facility]- [address] [place] [address] 05/08/2025 1:45 AM TYPING TEACHER [facility] [address] [place] [address] Oli Marie MD [address] [place], [place] [phone] 08/15/2025 11:00 AM CDT Office Visit [facility] [address] [place] [address] Oli Marie MD [address] [place], [place] [phone] 08/15/2025 11:00 AM CDT Allied Health/Nurse Visit [facility] [address] [place] [address] Oli Marie MD [address] [place], [place] [phone] documented as of this encounter Goals Goal Patient Goal Type Associated Problems Recent Progress Patient-Stated? Author Patient will return to prior living situation and remain independent in ADLs upon discharge from hospital General Laurie Emmanuel RN documented as of this encounter Visit Diagnoses Not on filedocumented in this encounter Care Teams Clinical Dental Technician Relationship Specialty Start Date End Date Tyree Cr MD [address] [place] [phone] PCP - General FAMILY PRACTICE 11/04/18 Anya Lopez MD [address] [place] [phone] [employer] [place] Signal Officer INTERVENTIONAL CARDIOLOGY 11/20/20 12/13/24 Oli Marie MD [address] [place] [address] Consulting Physician CLINICAL CARDIAC ELECTROPHYSIOLOGY 02/25/21 Juany Crocker PA-C [address] [place] [address] Referring Physician PHYSICIAN AIR CARGO SPECIALIST SUPERVISOR 12/07/23 Manuela Conklin MD [address] [place] [address] Consulting Physician CARDIOVASCULAR DISEASE 11/02/24 Deana Bah ANP- [facility] [place] [address] Nurse Practitioner NURSE PRACTITIONER ADULT HEALTH 12/14/24 documented as of this encounter
--- OUTSIDE RECORDS SUMMARY | 2025-04-25 15:22 | XMS_ITS | Encounter Summary ---
Author Organization [facility] Address [address] [place] [address] Care Team Providers Care Weight Trainer Name Role Phone Tyree Cr MD Primary Care Provider [phone] Anya Lopez MD Unavailable [phone] Oli Marie MD Unavailable [phone] Juany Crocker PA-C Unavailable [phone] Manuela Conklin MD Unavailable Deana Bah ANP-BC Unavailable +-[phone] Encounter Details Date Type Department Care Team (Late st Contact Info) Description 06/26/2021 Hospital Orders Only [facility] Anesthesia [address] [place] [address] Patience Thomson Anesthesia Record Procedure Summary Procedure Name Responsible Anesthesiologist Anesthesia Start Time Anesthesia Stop Time XA LEFT ATRIAL APPENDAGE CLOSURE Alonso Hollins II, MD 06/27/21 1137 06/27/21 1337 Events Date Time Event Comment 06/27/2021 0936 0936 AN Anesthesia Prepped 1137 An Start Patient ID and consent checked and patient reassessed. 1137 An Start Data 1143 Preoxygenation 1145 An Induction The patient was reevaluated immediately before moderate or deep sedation use and before anesthesia induction. 1148 An Intubation 1155 Anesthesia Ready 1221 AN AMBREEN 1239 Quick Note PROCEDURE START 1256 Quick Note ACT 267 - 5000 units heparin PSR 1323 An Extubation 1329 an stop data 1337 Post Anesthetic Care Handoff I completed my handoff to the receiving nurse during which we: 1. Identified the patient 2. Identified the responsible provider 3. Reviewed the pertinent medical history 4. Discussed the surgical course 5. Reviewed intra-op anesthesia management and issues during anesthesia 6. Set expectations for post-procedure period 7. Allowed opportunity for questions and acknowledgement of understanding. 1337 An Stop Meds * Agents No agents on file. * Blood No blood administrations on file. Lines, Drains, and Airways Type Details Placement Removal Peripheral IV Placement Date: 09/12; Placement Time: 0947; Placed Outside of This Facility?: No; Size: 20 G; Orientation: Left; Location: Hand; Site Prep: Chlorhexidine; Local Anesthetic: None; Insertion attempts: 1; Ultrasound-guided Placement?: No; Patient Tolerance: Tolerated well; Removal Date: 06/28/21; Removal Time: 1430; Removal Reason: Patient Discharged 06/27/21 0947 by Lois Vasquez RN 06/28/21 1430 by Carmelita Andrade RN Peripheral IV Placement Date: 09/12; Placement Time: 1000; Size: 20 G; Orientation: Posterior, Right; Location: Forearm; Removal Date: 06/28/21; Removal Time: 1430; Removal Reason: Patient Discharged 06/27/21 1000 by Aminata Narvaez RN 06/28/21 1430 by Carmelita Andrade RN ETT Placement Date: 09/12; Placement Time: 1148; Placed Outside of This Facility?:No; Mask Ventilate: Prior to intubation, Easy; Size (mm) : 7; Endotracheal: Oral, Stylet used; Blade Type: MAC 3; Placement Method: Direct Laryngoscopy (blade type in comment) (MAC 3); View Grade: 1; Viewable Anatomy: Epiglottis, Arytenoid, Vocal cords; Insertion Attempts: 1; Placement Verified By: Capnography, Auscultation, Chest Rise; Placed By: Other (Comment) (NacuiiANIEC SRNA); Extubation Assessment: Suctioned, Tolerated well, Patient spontaneously breathing, Able to swallow, Atraumatic; Removal Date: 06/27/21; Removal Time: 1323; Removal Person: Other (Comment) (NacuiiANIEC SRNA); Removal Reason: End of Case 06/27/21 1148 by Angelina Pillai CRNA 06/27/21 1323 by Angelina Pillai CRNA Arterial Line Placement Date: 09/12; Placement Time: 1205 (created via procedure documentation); Placed Outside of This Facility?: No; Size: 20; Orientation: Right; Location: Radial; Site Prep: Chlorhexidine; Local Anesthetic: None; Insertion Attempts: 1; Patient Tolerance: Tolerated well; Removal Date: 06/27/21; Removal Time: 153; Removal Reason: Therapy Completed 06/27/21 1205 by Angelina Pillai CRNA 06/27/21 1533 by Amelia Thakkar RN documented in this encounter Social History [...] Sex Assigned at Female 07/24/2024 11:23 AM REAL ESTATE MANAGER Legal Sex Female 10:24 PM CDT Gender Identity Female 05/14/2021 7:29 AM REAL ESTATE MANAGER Sexual Orientation Straight 05/14/2021 7: 29 AM REAL ESTATE MANAGER COVID-19 Exposure Response Date Recorded In the last 10 days, have yo u been in contact with someone who was confirmed or suspected to have Coronavirus/COVID-19? No / Unsure 06/29/2021 12:57 PM REAL ESTATE MANAGER documented as of this encounter Functional Status * Calculated C-SSRS Risk Score (Lifetime/Recent) Answer Date of Assessment Author Status No Risk Indicated 06/27/2021 9:20 AM REAL ESTATE MANAGER Marilu Vasquez RN Active * Whitman Suicide Severity Rating Scale (Screener/Recent Self-Report) Question Answer Date of Assessment Author Status 1. Wish to be (Past 1 Month) No 06/27/2021 9:20 AM REAL ESTATE MANAGER Lois Vasquez RN Act drew 2. Non-Specific Active Suicidal Thoughts (Past 1 Month) No 06/27/2021 9:20 AM REAL ESTATE MANAGER Pedro, Lois R, RN Act drew 6. Suicidal Behavior (Lifetime) No 06/27/2021 9:20 AM REAL ESTATE MANAGER Lois Vasquez RN Act drew documented as of this encounter Mental Status * Question Answer Entry Date Author Status Because of a physical, mental, or emotional condition, do you have serious difficulty concentrating, remembering, or making decisions? No 06/27/2021 4:06 PM REAL ESTATE MANAGER Carmelita Andrade RN Active documented in this encounter Plan of Treatment Upcoming Encounters Date Type Department Care Team (Late st Contact Info) Description 05/07/2025 1:30 PM REAL ESTATE MANAGER Office Visit [facility] [address] [place] [address] Deana Bah, [address] [address] 05/08/2025 1:45 AM REAL ESTATE MANAGER Allied Health/Nurse Visit [facility] [address] [place] [address] Oli Marie MD [address] [place] [address] 08/15/2025 11:00 AM CDT Office Visit [address] [place] [address] Oli Marie MD [address] [place] [address] 08/15/2025 11:00 AM CDT Allied Health/Nurse Visit [facility] [place] [address] [place] [address] Oli Marie MD [address] [place] [address] documented as of this encounter Visit Diagnoses Not on filedocumented in this encounter Additional Health Concerns Infection Onset Date Last Indicated Resolved Time COVID-19 Rule Out 08/01/2021 08/01/2021 08/01/2021 10:26 AM REAL ESTATE MANAGER COVID-19 Rule Out 08/01/2021 08/01/2021 08/01/2021 11:31 AM REAL ESTATE MANAGER documented as of this encounter Care Teams Weight Trainer Relationship Specialty Start Date End Date Tyree Cr MD [address] [place] [phone] PCP - General FAMILY PRACTICE 11/04/18 Anya Lopez MD [address] [place] [phone] [place] Jacquard Loom Card Changer INTERVENTIONAL CARDIOLOGY 11/20/20 12/13/24 Oli Marie MD [address] [place] [address] Consulting Physician CLINICAL CARDIAC ELECTROPHYSIOLOGY 02/25/21 Juany Crocker PA-C [address] [place] [address] Referring Physician PHYSICIAN JOB RECRUITER 12/07/23 Manuela Conklin MD [address] [place] [address] Consulting Physician CARDIOVASCULAR DISEASE 11/02/24 Deana Bah ANP-[facility] [address] [place] [address] Nurse Practitioner NURSE PRACTITIONER ADULT HEALTH 12/14/24 documented as of this encounter
--- OUTSIDE RECORDS SUMMARY | 2025-04-25 15:22 | XMS_ITS | Patient Health Record ---
Author Organization [facility] Address [address] [place], [place] [address] Care Team Providers Care Cat Operator Name Role Phone ASHWIN COSTA Unavailable [phone] Tyree Cr Unavailable Unavailable DREW CRUZ Unavailable [phone] Allergies Allergen (clinical drug ingredient) Drug/Non Drug Allergy documented on EMR Reaction Allergy Type Onset Date Status cefazolin Ancef (uncoded) Unknown Allergy 03/31/2013 act drew Substance with sulfonamide structure and antibacterial mechanism of action (substance) Product containing sulfonamide (product) (uncoded) Unknown Allergy 03/03/2013 active Reason For Referral No Information Medications Medication SIG (Take, Route, Frequency, Duration) Notes Start Date End Date Status Losartan Potassium 100 MG Oral Tablet ORAL losartan potassium 100 MG Oral TabletOriginal Medicationlosartan potassium 100 MG Oral Tablet *Reorder from [employer] for eRx and Interaction Alerts* 3 Active acetaminophen 325 MG Oral Tablet [Tylenol] ORAL acetaminophen 325 MG Oral Tablet [Tylenol]Original Medicationacetaminophen 325 MG Oral Tablet [Tylenol] *Reorder from [employer] for eRx and Interaction Alerts* 3 Active amlodipine 10 MG Oral Tablet ORAL amlodipine 10 MG Oral TabletOriginal Medicationamlodipine 10 MG Oral Tablet *Reorder from [employer] for eRx and Interaction Alerts* 5 Active Lactobacillus acidophilus [id number] UNT Oral Capsule ORAL Lactobacillus acidophilus [id number] UNT Oral CapsuleOriginal MedicationLactobacillus acidophilus [id number] UNT Oral Capsule *Reorder from [facility] for eRx and Interaction Alerts* 5 Active levothyroxine sodium 0.112 MG Oral Tablet ORAL levothyroxine sodium 0.112 MG Oral TabletOriginal Medicationlevothyroxine sodium 0.112 MG Oral Tablet *Reorder from [facility] for eRx and Interaction Alerts* 3 Active omeprazole 10 MG Delayed Release Oral Capsule ORAL omeprazole 10 MG Delayed Release Oral CapsuleOriginal Medicationomeprazole 10 MG Delayed Release Oral Capsule *Reorder from [facility] for eRx and Interaction Alerts* 3 Active trazodone hydrochloride 100 MG Oral Tablet ORAL trazodone hydrochloride 100 MG Oral TabletOriginal Medicationtrazodone hydrochloride 100 MG Oral Tablet *Reorder from [facility] for eRx and Interaction Alerts* 3 Active Metoprolol Tartrate 100 MG Oral Tablet ORAL metoprolol tartrate 100 MG Oral TabletOriginal Medicationmetoprolol tartrate 100 MG Oral Tablet *Reorder from [facility] for eRx and Interaction Alerts* 5 Active Flucytosine 500 MG Oral Capsule ORAL flucytosine 500 MG Oral CapsuleOriginal Medicationflucytosine 500 MG Oral Capsule *Reorder from [facility] for eRx and Interaction Alerts* 3 Active Pravastatin Sodium 10 MG Oral Tablet ORAL pravastatin sodium 10 MG Oral TabletOriginal Medicationpravastatin sodium 10 MG Oral Tablet *Reorder from [facility] for eRx and Interaction Alerts* 3 Active Meloxicam 15 MG Oral Tablet ORAL meloxicam 15 MG Oral TabletOriginal Medicationmeloxicam 15 MG Oral Tablet *Reorder from [facility] for eRx and Interaction Alerts* 5 Active Immunizations Vaccine Route Administration Date Status Comme nts Influenza, high dose seasonal Unknown 04/05/2023 Admini stered Tdap Unknown 08/17/2024 Administered Social History Social History Additional Details Category Social Info Options Details Migrated Social History Migrated Social History Alcohol intake : , Smoking Status : Never used tobacco , History of tobacco use : Vital Signs Height-cm 162.56 cm 03/12/2025 Weight-kg 104.33 kg 03/12/2025 Height 64.00 in 03/12/2025 Weight 230 lbs 03/12/2025 BMI 39.48 kg/m2 03/12/2025 Encounters Encounter Location Date Provider Diagnosis [facility] [address] [place] [id number] 03/12/2025 ASHWIN SNOOK Tinea unguium B35.1 [facility] [address] [place] [id number] 06/12/2024 ASHWIN SNOOK Tinea unguium B35.1 ; Pain in right toe(s) M79.674 ; Pain in left toe(s) M79.675 ; Atherosclerosis of [place] arteries of extremities with intermittent claudication, bilateral legs I70.213 and Type 2 diabetes mellitus with other circulatory complications E11.59 [facility] [address] [place] [id number] 09/04/2024 ASHWIN SNOOK Tinea unguium B35.1 ; Pain in right toe(s) M79.674 ; Pain in left toe(s) M79.675 and Atherosclerosis of [place] arteries of extremities with intermittent claudication, bilateral legs I70.213 [facility] [address] [place] [id number] 12/11/2024 ASHWIN SNOOK Tinea unguium B35.1 ; Contusion of right foot, initial encounter S90.31XA ; Pain in right toe(s) M79.674 ; Pain in left toe(s) M79.675 and Atherosclerosis of [place] arteries of extremities with intermittent claudication, bilateral legs I70.213 Assessments Encounter Date Diagnosis (ICD Code) Assessment Notes Treatment Notes Treatment Clinical Notes Section Notes 06/12/2024 Tinea unguium (ICD-10 - B35.1) NAIL DEBRIDEMENT: Nails 1-5 Bilateral were debrided extensively with nail nippers and emery board, reducing length and girth to pink healthy tissue with any subungual debris and necrotic tissue removed 09/04/2024 Tinea unguium (ICD-10 - B35.1) FUNGAL TOENAILS: Discussed various treatment options for fungal toenails including debridement, topical antifungals, oral antifungals, toenail avulsion, or toenail matrixectomy. NAIL DEBRIDEMENT: Nails 1-5 Bilateral were debrided extensively with nail nippers and emery board, reducing length and girth to pink healthy tissue with any subungual debris and necrotic tissue removed 09/04/2024 Pain in right toe(s) (ICD-10 - M79.674) 12/11/2024 Tinea unguium (ICD-10 - B35.1) FUNGAL [...] no improvement, she will contact the office 03/12/2025 Tinea unguium (ICD-10 - B35.1) FUNGAL TOENAILS: Discussed various treatment options for fungal toenails including debridement, topical antifungals, oral antifungals, toenail avulsion, or toenail matrixectomy. NAIL DEBRIDEMENT: Nails 1-5 Bilateral were debrided extensively with nail nippers and emery board, reducing length and girth to pink healthy tissue with any subungual debris and necrotic tissue removed 12/11/2024 Pain in right toe(s) (ICD-10 - M79.674) 09/04/2024 Pain in left toe(s) (ICD-10 - M79.675) 06/12/2024 Pain in right toe(s) (ICD-10 - M79.674) 06/12/2024 Pain in left toe(s) (ICD-10 - M79.675) 09/04/2024 Atherosclerosis of [place] arteries of extremities with intermittent claudication, bilateral legs (ICD-10 - I70.213) 12/11/2024 Pain in left toe(s) (ICD-10 - M79.675) 12/11/2024 Atherosclerosis of [place] arteries of extremities with intermittent claudication, bilateral legs (ICD-10 - I70.213) 06/12/2024 Atherosclerosis of [place] arteries of extremities with intermittent claudication, bilateral legs (ICD-10 - I70.213) 06/12/2024 Type 2 diabetes mellitus with other circulatory complications (ICD-10 - E11.59) Diabetic Foot Care: The patient was educated on diabetes and the lower extremity. The patient was instructed to check his feet daily to report any problems or signs of infection immediately. The patient was provided written information on Diabetic Foot Care as well as the Amputation Prevention Guide. Plan Of Treatment Next Appt Details Provider Name:DREW Narvaez MARISSA PRABHAKAR, 05/31/2025 01:10:00 PM, [address] [place] [address], [phone], Insurance Providers Payer Name Payer Address Payer Phone Subscriber Number Group Number Insured Name Patient Relationship to Insured Coverage Start Date Coverage End Date Medicare Part B [place] [address] [place] [address] [id number] LOVE SCHUSTER Self - patient is the insured [facility] ([facility]) ATTN CLAIMS [address] [place] [address] [id number] LOVE SCHUSTER Self - patient is the insured
--- OUTSIDE RECORDS SUMMARY | 2025-04-25 15:22 | XMS_ITS | Encounter Summary ---
Author Organization [facility] Address [address] [place] [address] Care Team Providers [employer] Specialist Name Role Phone Tyree Cr MD Primary Care Provider Anya Lopez MD Unavailable [phone] Oil Marie MD Unavailable [phone] Juany Crocker PA-C Unavailable [phone] Manuela Conklin MD Unavailable Deana Bah ANP-BC Unavailable [phone] Encounter Details Date Type Department Care Team ([facility] st Contact Info) Description 09/17/2021 [employer] Message [facility] [address] [place] [phone] [facility] Social History Tobacco Use Types Packs/Day Years [...] Sex Assigned at Female 07/24/2024 11:23 AM STEAMSHIP AGENT Legal Sex Female 10:24 PM CDT Gender Identity Female 05/14/2021 7:29 AM STEAMSHIP AGENT Sexual Orientation Straight 05/14/2021 7: 29 AM STEAMSHIP AGENT documented as of this encounter Functional Status * RETIRED Are you deaf or do you have serious difficulty hearing Answer Date of Assessment Author Status No 06/27/2021 4:06 PM STEAMSHIP AGENT Activ e * RETIRED Are you blind or do you have serious difficulty seeing, even when wearing glasses? Answer Date of Assessment Author Status No 06/27/2021 4:06 PM STEAMSHIP AGENT Activ e * Do you have serious difficulty walking or climbing stairs? Answer Date of Assessment Author Status No 06/27/2021 4:06 PM STEAMSHIP AGENT Carmelita Andrade R N Active * Do you have difficulty dressing or bathing? Answer Date of Assessment Author Status No 06/27/2021 4:06 PM STEAMSHIP AGENT Carmelita Andrade R N Active * Because of a physical, mental, or emotional condition, do you have difficulty doing errands alone such as visiting a doctor's office or shopping? Answer Date of Assessment Author Status No 06/27/2021 4:06 PM [employer]AMSHIP AGENT Carmelita Andrade R N Active documented as of this encounter Mental Status * Because of a physical, mental, or emotional condition, do you have serious difficulty concentrating, remembering, or making decisions? Answer Entry Date Author Status No 06/27/2021 4:06 PM STEAMSHIP AGENT Carmelita Andrade R N Active documented in this encounter Plan of Treatment Upcoming Encounters Date Type Department Care Team (Late st Contact Info) Description 05/07/2025 1:30 PM STEAMSHIP AGENT Office Visit [facility] [place] [phone] Deana Bah, [facility]- [address] [place] [address] 05/08/2025 1:45 AM STEAMSHIP AGENT [facility] [address] [place] [phone] Oli Marie MD [address] [address] 08/15/2025 11:00 AM CDT Office Visit [facility] [place] [address] [place] [phone] Oli Marie MD [address] [place], [place] [id number] 08/15/2025 11:00 AM CDT Allied Health/Nurse Visit [place] [address] [place] [address] Oli Marie MD [address] [place], [place] [id number] documented as of this encounter Visit Diagnoses Not on filedocumented in this encounter Care Teams [employer] Specialist Relationship Specialty Start Date End Date Tyree Cr MD [address] [place], [place] [phone] PCP - General FAMILY PRACTICE 11/04/18 Anya Lopez MD [address] [place] [phone] [place] [employer] INTERVENTIONAL CARDIOLOGY 11/20/20 12/13/24 Oli Marie MD [address] [place] [address] Consulting Physician CLINICAL CARDIAC ELECTROPHYSIOLOGY 02/25/21 Juany Crocker PA-C [address] [place] [address] Referring Physician PHYSICIAN MACHINE OILER 12/07/23 Manuela Conklin MD [facility] [place] [address] Consulting Physician CARDIOVASCULAR DISEASE 11/02/24 Deana Bah, LINDA- [address] [place] [address] Nurse Practitioner NURSE PRACTITIONER ADULT HEALTH 12/14/24 documented as of this encounter
[2025-04-25 16:06] LABS: Albumin Level 4.2 g/dL (3.5-5.1); Anion Gap 15 mmol/L (4-12); Blood Urea Nitrogen 32 mg/dL (7-17); Calcium 10.3 mg/dL (8.4-10.2); Carbon Dioxide 16 mmol/L (22-30); Chloride 103 mmol/L (98-107); Estimated Glomerular Filt Rate 39; Glucose 163 mg/dL (65-110); Osmolality Calculated 288 mOsm/kg (285-295); Potassium 4.4 mmol/L (3.4-5.0); Sodium 134 mmol/L (137-145)
== END 2025-04-25 14:03 | disposition home or self-care (01) ==
LOC: CHSLAB 14:05
PROVIDERS: PCP Family Medicine
DX: N18.4 Chronic kidney disease, stage 4 (severe) (principal)
CPT/HCPCS: 36415; 80069; 82043; 85027